=== PATIENT | female | born 1940 | race Caucasian/White ===

== ENCOUNTER 2017-03-26 11:23 | Emergency (ER) | payer MEDICARE, OTHER ==
[2017-03-26] MEDS ORDERED: NS 0.9% 1000 ML* 1,000 ML IV ONE (12:17)
[2017-03-26 12:41] LABS: Hematocrit 41 % (35-47); Hemoglobin 13.9 g/dl (12.0-16.0); Mean Corpuscular HGB Conc 34 g/dl (31-36); Mean Corpuscular Hemoglobin 34 pg (27-31); Mean Corpuscular Volume 98 fL (80-97); Mean Platelet Volume 10 um3 (7.4-10.4); Red Blood Count 4.13 10^6/ul (4.0-5.4); Red Cell Distribution Width 13 % (10.5-15); White Blood Count 8.6 10^3/ul (3.5-10.8)
[2017-03-26 13:00] LABS: Albumin 4.3 g/dL (3.2-5.2); BUN/Creatinine Ratio 15.2 (8-20); Calcium 10.2 mg/dL (8.6-10.3); EGFR Non-African American 70.8 (>60); Globulin 3.2 g/dL (2-4); Potassium 4.1 mmol/L (3.5-5.0); Total Bilirubin 0.7 mg/dL (0.2-1.0); Total Protein 7.5 g/dL (6.4-8.9)
[2017-03-26 13:48] VITALS: BP 136/66
--- NOTE | 2017-03-27 16:36 | ED ---
Yanni Melo Thomas, scribed for Brian Cadet MD on 03/26/17 at 1218 . GI/ HPI - HPI Summary HPI Summary: The pt is a 77 y/o F presenting to the ED c/o diarrhea that began yesterday morning. The diarrhea is described as loose and watery. She had some diarrhea today but she mostly had it yesterday. The diarrhea is aggravated and alleviated by nothing. 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 Pt additionally c/o lightheadedness (since yesterday), excessive gas, and some nausea. Pt denies any pain, vomiting, dysuria, and hematuria. PMHx: HTN, arthritis. PSHx: tubal ligation. SHx: former smoker, no alcohol use, no illicit drug use. She was referred to [facility] from her PCP. - History of Current Complaint Chief Complaint: EDNauseaVomitDiarrh Time Seen by Provider: 03/26/17 12:04 Stated Complaint: DEHYDRATION/SENT FROM [place] Obtained From: Patient, Family/[employer] Director - in room Onset/Duration: Started Days Ago - yesterday, Still Present Pain Intensity: 0 Associated Signs and Symptoms: Positive: Nausea, Diarrhea - onset yesterday, Other: - POS: lightheadedness, excessive gas; NEG: any pain. Negative: Vomiting , Blood w/Stool, Hematuria, Dysuria, Abdominal Pain Aggravating Factor(s): Nothing Alleviating Factor(s): Nothing - Allergy/Home Medications Allergies/Adverse Reactions: Allergies Allergy/AdvReac Type Severity Reaction Status Date / Time Atenolol [From Tenormin] Allergy Leg Cramps Verified 03/26/17 11:58 Rofecoxib [From Vioxx] Allergy Swelling Verified 03/26/17 11:58 Sulfa Antibiotics Allergy UNSURE WHY Verified 03/26/17 11:58 Hydrocodone AdvReac GI Upset Verified 03/26/17 11:58 Lactose AdvReac GI UPSET, Verified 03/26/17 11:58 GASSY MAXIDE AdvReac Intermediate See Comment Uncoded 03/26/17 11:58 PMH/Surg Hx/FS Hx/Imm Hx Previously Healthy: No Cardiovascular History: Reports: Hx Hypertension - ON MEDS GI History: Reports: Hx Gastroesophageal Reflux Disease Denies: Other GI Disorders Musculoskeletal History: Reports: Hx Arthritis - HANDS, BACK Denies: Other Musculoskeletal History Sensory History: Reports: Hx Cataracts - DOREEN, Hx Contacts or Glasses - GLASSES Denies: Hx Hearing Aid Opthamlomology History: Reports: Hx Cataracts - DOREEN, Hx Contacts or Glasses - GLASSES - Surgical History Surgery Procedure, Year, and Place: LAMINECTOMY, 2007, [facility]. TUBAL LIGATION 1976 Hx Anesthesia Reactions: Yes - DIFFICULTY TO INTUBATE Infectious Disease History: No Infectious Disease History: Denies: Traveled Outside the [place] in Last 30 Days - Family History Known Family History: Positive: Hypertension - Social History Alcohol Use: None Substance Use Type: Reports: None Smoking Status (MU): Former Smoker Amount Used/How Often: PACK A WEEK Have You Smoked in the Last Year: No Review of Systems Negative: Fever Positive: Diarrhea - onset yesterday, loose and watery, Nausea, Other - POS: excessive gas. Negative: Abdominal Pain, Vomiting Negative: dysuria, hematuria Neurological: Other - POS: lightheadedness All Other Systems Reviewed And Are Negative: Yes Physical Exam Triage Information Reviewed: Yes Vital Signs On Initial Exam: Initial Vitals Temp Pulse Resp BP Pulse Ox 97.8 F 70 18 140/65 100 03/26/17 11:36 03/26/17 11:36 03/26/17 11:36 03/26/17 11:36 03/26/17 11:36 Vital Signs Reviewed: Yes Appearance: Positive: No Pain Distress, Well-Nourished, Ill-Appearing Skin: Positive: Warm, Skin Color Reflects Adequate Perfusion, Dry, Other - Her skin is tense Head/Face: Positive: Normal Head/Face Inspection Eyes: Positive: Normal ENT: Positive: Normal ENT inspection, Other - Dry mucous membranes Neck: Positive: Supple, Nontender Respiratory/Lung Sounds: Positive: Clear to Auscultation, Breath Sounds Present Cardiovascular: Positive: RRR Abdomen Description: Positive: Nontender, Soft Bowel Sounds: Positive: Present Musculoskeletal: Positive: Normal Neurological: Positive: Normal Psychiatric: Positive: Normal, Affect/Mood Appropriate - Honorio Coma Scale Coma Scale Total: 15 Diagnostics - Vital Signs Vital Signs Temp Pulse Resp BP Pulse Ox 03/26/17 11:56 97.8 F 64 16 149/66 99 03/26/17 11:36 97.8 F 70 18 140/65 100 - Laboratory Lab Results: Lab Results 03/26/17 03/26/17 Range/Units 12:30 12:30 WBC 8.6 (3.5-10.8) 10^3/ul RBC 4.13 (4.0-5.4) 10^6/ul Hgb 13.9 (12.0-16.0) g/dl Hct 41 (35-47) % MCV 98 H (80-97) fL MCH 34 H (27-31) pg MCHC 34 (31-36) g/dl RDW 13 (10.5-15) % Plt Count 187 (150-450) 10^3/ul MPV 10 (7.4-10.4) um3 Neut % (Auto) 79.8 (38-83) % Lymph % (Auto) 14.0 L (25-47) % [place] % (Auto) 5.4 (1-9) % Eos % (Auto) 0.1 (0-6) % Baso % (Auto) 0.7 (0-2) % Absolute Neuts (auto) 6.9 (1.5-7.7) 10^3/ul Absolute Lymphs (auto) 1.2 (1.0-4.8) 10^3/ul Absolute Monos (auto) 0.5 (0-0.8) 10^3/ul Absolute Eos (auto) 0 (0-0.6) 10^3/ul Absolute Basos (auto) 0.1 (0-0.2) 10^3/ul Absolute Nucleated RBC 0 10^3/ul Nucleated RBC % 0 Sodium 132 L (133-145) mmol/L Potassium 4.1 (3.5-5.0) mmol/L Chloride 100 L (101-111) mmol/L Carbon Dioxide 25 (22-32) mmol/L Anion Gap 7 (2-11) mmol/L BUN 12 (6-24) mg/dL Creatinine 0.79 (0.51-0.95) mg/dL Est GFR ( Amer) 91.0 (>60) Est GFR (Non-Af Amer) 70.8 (>60) BUN/Creatinine Ratio 15.2 (8-20) Glucose 101 H (70-100) mg/dL Calcium 10.2 (8.6-10.3) mg/dL Magnesium 2.0 (1.9-2.7) mg/dL Total Bilirubin 0.70 (0.2-1.0) mg/dL AST 15 (13-39) U/L ALT 12 (7-52) U/L Alkaline Phosphatase 71 (34-104) U/L Total Protein 7.5 (6.4-8.9) g/dL Albumin 4.3 (3.2-5.2) g/dL Globulin 3.2 (2-4) g/dL Albumin/Globulin Ratio 1.3 (1-3) Result Diagrams: 03/26/17 12:30 03/26/17 12:30 Lab Statement: Any lab studies that have been ordered have been reviewed, and results considered in the medical decision making process. Re-Evaluation - Re-Evaluation First Eval Re-Evaluation Time: 13:39 Change: Unchanged Comment: She is unsure if she feels better. GIGU Course/Dx - Course Course Of Treatment: Ms. Sharma presented feeling weak and 'not well' for a day or so. Her W/U was negative and she was rehydrated and was a little better. This is likely viral and she was D/C'd for PMD F/U. - Diagnoses Provider Diagnoses: Diarrhea, Dehydration Discharge - Discharge Plan Condition: Stable Disposition: HOME Patient Education Materials: Dehydration (ED), Acute Diarrhea (ED) Referrals: Yoli Echevarria MD [Primary Care Provider] - 3 Days Additional Instructions: Follow up with Dr. Echevarria. The documentation as recorded by the Yanni salazar Thomas accurately reflects the service I personally performed and the decisions made by me, Brian Cadet MD.
== END 2017-03-26 13:58 | disposition home or self-care (01) ==
LOC: ED 11:23
DX: R19.7 Diarrhea, unspecified (principal); E86.0 Dehydration; R42 Dizziness and giddiness; R11.0 Nausea; I10 Essential (primary) hypertension; K21.9 Gastro-esophageal reflux disease without esophagitis; Z88.5 Allergy status to narcotic agent; Z88.2 Allergy status to sulfonamides; Z88.8 Allergy status to other drugs, medicaments and biological substances; Z87.891 Personal history of nicotine dependence
CPT/HCPCS: 36415; 80053; 83735; 85025; 99282

== ENCOUNTER 2017-07-08 07:13 | Emergency (ER) | payer MEDICARE, OTHER ==
[2017-07-08] MEDS ORDERED: Meclizine TAB* 12.5 MG PO ONE (07:57)
[2017-07-08] MEDS ORDERED: NS 0.9% 1000 ML* 1,000 ML IV ONE (07:57)
[2017-07-08] MEDS ORDERED: Famotidine IV* 10 MG/ML 2 ML (20 mg) IV SLOW PU ONE (07:58)
--- NOTE | 2017-07-08 08:20 | RAD ---
INDICATION: Dizziness COMPARISON: None TECHNIQUE: AP seated and lateral views were obtained. FINDINGS: Bones/Soft Tissues: There are no acute bony findings. Cardiomediastinal: The cardiomediastinal silhouette is normal. Lungs: There are no infiltrates. Pleura: There are no pleural effusions. Other: None IMPRESSION: NO ACTIVE DISEASE.
[2017-07-08 08:44] LABS: Hematocrit 39 % (35-47); Hemoglobin 13.6 g/dl (12.0-16.0); Mean Corpuscular HGB Conc 35 g/dl (31-36); Mean Corpuscular Hemoglobin 34 pg (27-31); Mean Corpuscular Volume 99 fL (80-97); Mean Platelet Volume 10 um3 (7.4-10.4); Red Blood Count 3.99 10^6/ul (4.0-5.4); Red Cell Distribution Width 13 % (10.5-15); White Blood Count 6.6 10^3/ul (3.5-10.8)
[2017-07-08 08:55] LABS: ALT 12 U/L (7-52); AST 15 U/L (13-39); Albumin 4.1 g/dL (3.2-5.2); Alkaline Phosphatase 67 U/L (34-104); Anion Gap 8 mmol/L (2-11); BUN/Creatinine Ratio 14.1 (8-20); Blood Urea Nitrogen 12 mg/dL (6-24); C Reactive Protein < 1.00 mg/L (< 5.00); CO2 Carbon Dioxide 24 mmol/L (22-32); Chloride 103 mmol/L (101-111); EGFR African American 83.6 (>60); Globulin 2.6 g/dL (2-4); Glucose 100 mg/dL (70-100); Potassium 4.1 mmol/L (3.5-5.0); Sodium 135 mmol/L (133-145); Total Protein 6.7 g/dL (6.4-8.9)
[2017-07-08 08:57] LABS: Troponin I 0.01 ng/mL (<0.04)
[2017-07-08 09:15] LABS: TSH (Thyroid Stimulating Horm) 0.07 mcIU/mL (0.34-5.60)
[2017-07-08 10:54] VITALS: BP 124/57
[2017-07-08 10:56] LABS: Free T4 1.07 ng/dL (0.61-1.12)
[2017-07-08 11:05] LABS: Urine Bilirubin Negative (Negative); Urine Glucose Negative (Negative); Urine Nitrite Negative (Negative)
--- NOTE | 2017-07-09 07:30 | ED ---
Renato Melo Angela, scribed for Felton Cohen MD on 07/08/17 at 0749 . Complex/Multi-Sys Presentation - HPI Summary HPI Summary: This pt is a 77 y/o female presenting to [facility] c/o dizziness and weakness today. Pt reports she has had these episodes intermittently for a year. She states that her first episode began 1 year ago with shakiness and weakness. The next one was in October/November 2016 and notes she was dizzy. Today she felt dizzy earlier and had to be held, per family member. Pt describes today's dizziness as feeling her head and body "funny" and feeling weak, almost like passing out. Currently pt feels tired and weak, but her dizziness has resolved. She describes her body feels weak and with no energy. She denies chest pain, SOB, palpitations, headache, blurry vision, dysuria, abd pain. Pt additionally states she had a lot of gas today. She reports her last bowel movement was this morning, which she describes as having small BM several times a day. - History Of Current Complaint Chief Complaint: EDDizziness Time Seen by Provider: 07/08/17 07:39 Hx Obtained From: Patient Onset/Duration: Lasting Hours, Still Present Timing: Hours Location: Negative Associated Signs And Symptoms: Positive: Dizziness - now resolved, Weakness - generalized, Other - POS: tired, fatigue, shakiness, no energy. NEG: palpitations, blurry vision. Negative: Headache, SOB, Chest Pain, Abdominal Pain, Dysuria, Fever - Allergies/Home Medications Allergies/Adverse Reactions: Allergies Allergy/AdvReac Type Severity Reaction Status Date / Time Sulfa Antibiotics Allergy UNSURE WHY Verified 03/26/17 11:58 Amlodipine AdvReac See Comment Verified 07/08/17 09:32 Atenolol [From Tenormin] AdvReac Leg Cramps Verified 07/08/17 09:31 Diltiazem AdvReac See Comment Verified 07/08/17 09:30 Hydrocodone AdvReac GI Upset Verified 03/26/17 11:58 Lactose AdvReac GI UPSET, Verified 03/26/17 11:58 GASSY Rofecoxib [From Vioxx] AdvReac Swelling Verified 07/08/17 09:32 MAXIDE AdvReac Intermediate See Comment Uncoded 03/26/17 11:58 Home Medications: Home Medications Acetaminophen [Acetaminophen Extra Stren] 500 mg PO TID WITH MEALS PRN 07/08/17 [History Confirmed 07/08/17] Aspirin EC Low Dose* [Ecotrin EC Low Dose 81 MG*] 81 mg PO DAILY 07/08/17 [ History Confirmed 07/08/17] Calcium Carbonate-Cholecalcife [Calcium 1000 + D] 1 tab PO BID 07/08/17 [ History Confirmed 07/08/17] Cyanocobalamin TAB* [Vitamin B12 TAB*] 1,000 mcg PO DAILY 07/08/17 [History Confirmed 07/08/17] Esomeprazole(NF) [NexIUM(NF)] 40 mg PO DAILY 07/08/17 [History Confirmed ] Glucosamine Sulfate 1,000 mg PO BID WITH MEALS 07/08/17 [History Confirmed 07/08] Lisinopril TAB* [Prinivil TAB*] 20 mg PO DAILY 07/08/17 [History Confirmed 07/08] Naproxen Sodium [Naproxen Sodium 220 mg] 220 mg PO TID WITH MEALS PRN 07/08/17 [ History Confirmed 07/08/17] Spironolactone TAB* [Aldactone TAB*] 25 mg PO DAILY 07/08/17 [History Confirmed 07/08/17] clonazePAM TAB(*) [KlonoPIN TAB(*)] 0.5 mg PO BID 07/08/17 [History Confirmed ] PMH/Surg Hx/FS Hx/Imm Hx Cardiovascular History: Reports: Hx Hypertension - ON MEDS GI History: Reports: Hx Gastroesophageal Reflux Disease Denies: Other GI Disorders Musculoskeletal History: Reports: Hx Arthritis - HANDS, BACK Denies: Other Musculoskeletal History Sensory History: Reports: Hx Cataracts - DOREEN, Hx Contacts or Glasses - GLASSES Denies: Hx Hearing Aid Opthamlomology History: Reports: Hx Cataracts - DOREEN, Hx Contacts or Glasses - GLASSES - Surgical History Surgery Procedure, Year, and Place: LAMINECTOMY, 2006, [facility]. TUBAL LIGATION 1976 Hx Anesthesia Reactions: Yes - DIFFICULTY TO INTUBATE Infectious Disease History: No Infectious Disease History: Denies: Traveled Outside the [place] in Last 30 Days - Family History Known Family History: Positive: Hypertension - Social History Alcohol Use: None Substance Use Type: Reports: None Smoking Status (MU): Former Smoker Amount Used/How Often: PACK A WEEK Have You Smoked in the Last Year: No Review of Systems Positive: Fatigue - no energy. Negative: Fever, Chills Negative: Blurred Vision Negative: Palpitations, Chest Pain Negative: Shortness Of Breath Negative: Abdominal Pain Negative: dysuria Neurological: Other - dizziness, shakiness Positive: Weakness - generalized. Negative: Headache All Other Systems Reviewed And Are Negative: Yes Physical Exam - Summary Physical Exam Summary: VITAL SIGNS: Reviewed. GENERAL: Patient is a well-developed and nourished female who is lying comfortable in the stretcher. Patient is not in any acute respiratory distress. Pt has generalized weakness. HEAD AND FACE: No signs of trauma. No ecchymosis, hematomas or skull depressions. No sinus tenderness. EYES: PERRLA, EOMI x 2, No injected conjunctiva, no nystagmus. EARS: Hearing grossly intact. Ear canals and tympanic membranes are within normal limits. MOUTH: Oropharynx within normal limits. NECK: Supple, trachea is midline, no adenopathy, no JVD, no carotid bruit, no c- spine tenderness, neck with full ROM. CHEST: Symmetric, no tenderness at palpation LUNGS: Clear to auscultation bilaterally. No wheezing or crackles. CVS: Regular rate and rhythm, S1 and S2 present, no murmurs or gallops appreciated. ABDOMEN: Soft, non-tender. No signs of distention. No rebound no guarding, and no masses palpated. Bowel sounds are normal. EXTREMITIES: FROM in all major joints, no edema, no cyanosis or clubbing. NEURO: Alert and oriented x 3. No acute neurological deficits. Speech is normal and follows commands. SKIN: Dry and warm Triage Information Reviewed: Yes Vital Signs On Initial Exam: Initial Vitals Temp Pulse Resp BP Pulse Ox 97.4 F 103 20 150/71 100 07/08/17 07:19 07/08/17 07:19 07/08/17 07:19 07/08/17 07:19 07/08/17 07:19 Vital Signs Reviewed: Yes - Honorio Coma Scale Coma Scale Total: 15 Diagnostics - Vital Signs Vital Signs Temp Pulse Resp BP Pulse Ox 07/08/17 07:34 74 25 100 07/08/17 07:32 135/65 07/08/17 07:19 97.4 F 103 20 150/71 100 - Laboratory Lab Results: Lab Results 07/08/17 07/08/17 07/08/17 Range/Units 07:52 07:52 07:52 WBC 6.6 (3.5-10.8) 10^3/ul RBC 3.99 L (4.0-5.4) 10^6/ul Hgb 13.6 (12.0-16.0) g/dl Hct 39 (35-47) % MCV 99 H (80-97) fL MCH 34 H (27-31) pg MCHC 35 (31-36) g/dl RDW 13 (10.5-15) % Plt Count 205 (150-450) 10^3/ul MPV 10 (7.4-10.4) um3 Neut % (Auto) 68.3 (38-83) % Lymph % (Auto) 21.9 L (25-47) % [place] % (Auto) 7.9 (1-9) % Eos % (Auto) 0.7 (0-6) % Baso % (Auto) 1.2 (0-2) % Absolute Neuts (auto) 4.5 (1.5-7.7) 10^3/ul Absolute Lymphs (auto) 1.4 (1.0-4.8) 10^3/ul Absolute Monos (auto) 0.5 (0-0.8) 10^3/ul Absolute Eos (auto) 0 (0-0.6) 10^3/ul Absolute Basos (auto) 0.1 (0-0.2) 10^3/ul Absolute Nucleated RBC 0 10^3/ul Nucleated RBC % 0.1 Sodium 135 (133-145) mmol/L Potassium 4.1 (3.5-5.0) mmol/L Chloride 103 (101-111) mmol/L Carbon Dioxide 24 (22-32) mmol/L Anion Gap 8 (2-11) mmol/L BUN 12 (6-24) mg/dL Creatinine 0.85 (0.51-0.95) mg/dL Est GFR ( Amer) 83.6 (>60) Est GFR (Non-Af Amer) 65.0 (>60) BUN/Creatinine Ratio 14.1 (8-20) Glucose 100 (70-100) mg/dL Lactic Acid (0.5-2.0) mmol/L Calcium 10.0 (8.6-10.3) mg/dL Magnesium 2.0 (1.9-2.7) mg/dL Total Bilirubin 0.60 (0.2-1.0) mg/dL AST 15 (13-39) U/L ALT 12 (7-52) U/L Alkaline Phosphatase 67 (34-104) U/L Troponin I 0.01 (<0.04) ng/mL C-Reactive Protein < 1.00 (< 5.00) mg/L B-Natriuretic Peptide 18 ( - 100) pg/mL Total Protein 6.7 (6.4-8.9) g/dL Albumin 4.1 (3.2-5.2) g/dL Globulin 2.6 (2-4) g/dL Albumin/Globulin Ratio 1.6 (1-3) TSH 0.07 L (0.34-5.60) mcIU/mL Free T4 1.07 (0.61-1.12) ng/dL Urine Color Urine Appearance Urine pH (5-9) Ur Specific [place] (1.010-1.030) Urine Protein (Negative) Urine Ketones (Negative) Urine Blood (Negative) Urine Nitrate (Negative) Urine Bilirubin (Negative) Urine Urobilinogen (Negative) Ur Leukocyte Esterase (Negative) Urine Glucose (Negative) 07/08/17 07/08/17 Range/Units 07:52 09:57 WBC (3.5-10.8) 10^3/ul RBC (4.0-5.4) 10^6/ul Hgb (12.0-16.0) g/dl Hct (35-47) % MCV (80-97) fL MCH (27-31) pg MCHC (31-36) g/dl RDW (10.5-15) % Plt Count (150-450) 10^3/ul MPV (7.4-10.4) um3 Neut % (Auto) (38-83) % Lymph % (Auto) (25-47) % [place] % (Auto) (1-9) % Eos % (Auto) (0-6) % Baso % (Auto) (0-2) % Absolute Neuts (auto) (1.5-7.7) 10^3/ul Absolute Lymphs (auto) (1.0-4.8) 10^3/ul Absolute Monos (auto) (0-0.8) 10^3/ul Absolute Eos (auto) (0-0.6) 10^3/ul Absolute Basos (auto) (0-0.2) 10^3/ul Absolute Nucleated RBC 10^3/ul Nucleated RBC % Sodium (133-145) mmol/L Potassium (3.5-5.0) mmol/L Chloride (101-111) mmol/L Carbon Dioxide (22-32) mmol/L Anion Gap (2-11) mmol/L BUN (6-24) mg/dL Creatinine (0.51-0.95) mg/dL Est GFR ( Amer) (>60) Est GFR (Non-Af Amer) (>60) BUN/Creatinine Ratio (8-20) Glucose (70-100) mg/dL Lactic Acid 1.0 (0.5-2.0) mmol/L Calcium (8.6-10.3) mg/dL Magnesium (1.9-2.7) mg/dL Total Bilirubin (0.2-1.0) mg/dL AST (13-39) U/L ALT (7-52) U/L Alkaline Phosphatase (34-104) U/L Troponin I (<0.04) ng/mL C-Reactive Protein (< 5.00) mg/L B-Natriuretic Peptide ( - 100) pg/mL Total Protein (6.4-8.9) g/dL Albumin (3.2-5.2) g/dL Globulin (2-4) g/dL Albumin/Globulin Ratio (1-3) TSH (0.34-5.60) mcIU/mL Free T4 (0.61-1.12) ng/dL Urine Color Straw Urine Appearance Clear Urine pH 7.0 (5-9) Ur Specific [place] 1.005 L (1.010-1.030) Urine Protein Negative (Negative) Urine Ketones Negative (Negative) Urine Blood Negative (Negative) Urine Nitrate Negative (Negative) Urine Bilirubin Negative (Negative) Urine Urobilinogen Negative (Negative) Ur Leukocyte Esterase Negative (Negative) Urine Glucose Negative (Negative) Result Diagrams: 07/08/17 07:52 12/01/17 07:52 Lab Statement: Any lab studies that have been ordered have been reviewed, and results considered in the medical decision making process. - Radiology Chest XR Xray Interpretation: No Acute Changes - IMPRESSION: No active disease. ED physician has reviewed this radiology report and agrees. Radiology Interpretation Completed By: Radiologist - EKG 0814 Cardiac Rate: NL EKG Rhythm: Sinus Rhythm - 70 bpm EKG Interpretation: No ST elevation. Normal axis Re-Evaluation - Re-Evaluation First Eval Re-Evaluation Time: 10:42 Comment: I reviewed the lab results with the pt and family. Complex Multi-Symp Course/Dx Assessment/Plan: This pt is a 77 y/o female presenting to [facility] c/o dizziness and weakness today. Pt reports she has had these episodes intermittently for a year. She states that her first episode began 1 year ago with shakiness and weakness. The next one was in October/November 2016 and notes she was dizzy. Today she felt dizzy earlier and had to be held, per family member. Pt describes today 's dizziness as feeling her head and body "funny" and feeling weak, almost like passing out. Currently pt feels tired and weak, but her dizziness has resolved. She describes her body feels weak and with no energy. She denies chest pain, SOB , palpitations, headache, blurry vision, dysuria, abd pain. Pt additionally states she had a lot of gas today. She reports her last bowel movement was this morning, which she describes as having small BM several times a day. Test results without any significant abnormalities except for TSH of 0.07. Urinalysis is negative for UTI. Chest XR shows no active disease. In the ED course, the pt was given IV fluids, Pepcid, and meclizine. After these medications, the pt is feeling a little better. I believe the pts weakness is secondary to thyroid disease for which she has a follow up with an shingle weaver on Tuesday for further work up. Pt will be discharge with follow up from her PCP. Pt is hemodynamically stable, alert and oriented x3. - Diagnoses Provider Diagnoses: Weakness, Abnormal TSH Discharge - Discharge Plan Condition: Stable Disposition: HOME Patient Education Materials: Weakness (ED) Referrals: Yoli Echevarria MD [Primary Care Provider] - Additional Instructions: Please follow up with your primary care provider. RETURN TO THE ED FOR ANY WORSENING OR NEW SYMPTOMS. The documentation as recorded by the Renato salazar Angela accurately reflects the service I personally performed and the decisions made by , Felton Cohen MD.
== END 2017-07-08 11:02 | disposition home or self-care (01) ==
LOC: ED 07:13
DX: R53.1 Weakness (principal); R94.6 Abnormal results of thyroid function studies; R42 Dizziness and giddiness; Z86.79 Personal history of other diseases of the circulatory system; Z87.891 Personal history of nicotine dependence
CPT/HCPCS: 36415; 71020; 80053; 81003; 83605; 83735; 83880; 84439; 84443; 84484; 85025; 86140; 93005; 99283; A9270-GY

== ENCOUNTER → 2019-01-30 06:30 | Day surgery (SDC) | payer MEDICARE, OTHER ==
--- NOTE | 2019-01-26 08:31 | HP ---
PREOPERATIVE HISTORY AND PHYSICAL: DATE OF SURGERY/ADMISSION: 01/30/19 DATE OF OFFICE VISIT/ENCOUNTER: 01/08/19 ATTENDING SURGEON: Candice Waggoner MD.* (DICTATED BY CARRIE GRAHAM) PROCEDURE: Left wrist carpal tunnel release, ulnar nerve decompression of left elbow. HISTORY OF PRESENT ILLNESS: This is a 78-year-old female who complains of numbness and tingling in her bilateral hands for many years, worse on the left than on the right. She is left handed. She recently had a nerve conduction study that showed bilateral moderate carpal tunnel syndrome and there are some mild findings of ulnar nerve compression on the left side as well. On the left side, she complains of numbness in all of her fingers. On the right side, all of the fingers except the small finger. There was no injury to either arm. She has tried bracing in the past, but they are no longer helpful. She is interested in pursuing surgical intervention for her left upper extremity in the form of a left wrist carpal tunnel release and ulnar nerve decompression at the elbow. PAST MEDICAL HISTORY: 1. Peripheral neuropathy. 2. Hypertension. 3. Hypothyroidism. 4. History of heart murmur. 5. History of vitamin D deficiency. PAST SURGICAL HISTORY: 1. Squamous cell carcinoma excision, left arm. 2. Bilateral cataract removal in 2016. 3. Laminectomy in 2006. 4. Tubal ligation. 5. Tonsillectomy. CURRENT MEDICATIONS: 1. Acetaminophen 500 mg 1 to 2 tabs 3 times a day p.r.n. 2. Aspirin 81 mg daily. 3. Brimonidine tartrate 0.2% 1 drop each eye 2 times daily. 4. Calcium citrate plus D 250/200 mg per unit 1500 units 1 tab per day. 5. Gabapentin 600 mg daily. 6. Gas-X Extra Strength daily. 7. Glucosamine sulfate 1000 mg twice a day. 8. Latanoprost 0.005% 1 drop each eye at bedtime. 9. Lisinopril 20 mg daily. 10. Prevacid 30 mg daily. 11. Spironolactone 25 mg daily. 12. Tapazole 5 mg twice a day. 13. Vitamin B12 1000 mcg daily. ALLERGIES: AMLODIPINE, CARDIZEM, DEXAMETHASONE, ESCITALOPRAM, HYDROCHLOROTHIAZIDE, NABUMETONE, RELAFEN, ROFECOXIB, SULFA ANTIBIOTIC, TENORMIN , VIOXX, none of these medications cause an anaphylactic reaction. FAMILY MEDICAL HISTORY: Heart disease, diabetes, and hypertension. SOCIAL HISTORY: The patient is retired. She is a former smoker. She quit 50 years ago. Prior to that she smoked socially for less than 10 years. She denies recreational drug use and does not drink alcohol. REVIEW OF SYSTEMS: Negative for general, cephalic, cardiovascular, respiratory , GI, , other musculoskeletal, integumentary, endocrine, neurologic and hematologic symptoms. Infectious disease: Negative for MRSA, hepatitis C, and HIV. PHYSICAL EXAMINATION GENERAL: Well developed, well nourished, 78-year-old female in no acute distress. VITAL SIGNS: Height 5 feet 9 inches, weight 180 pounds, blood pressure 136/68 and pulse rate 62. HEENT: Normocephalic, atraumatic. Pupils are equal round and reactive to light and accommodation. Extraocular movements are intact. Throat is clear. NECK: Supple. No palpable lymph nodes. PULMONARY: Lungs are clear to auscultation bilaterally. No wheezes, rales or rhonchi. CARDIOVASCULAR: Regular rate and rhythm. S1, S2. Mild murmur noted on auscultation. No rubs or gallops. ABDOMEN: Positive bowel sounds, soft and nontender. MUSCULOSKELETAL: On exam of bilateral upper extremity, there is thenar wasting , worse on the right than on the left. She has decreased sensation in the fingers of the median nerve on the right hand and all of the fingers of the left hand. Positive Tinel's sign of the ulnar nerve at the elbow on the left, not on the right. Negative Tinel's sign of both median nerves at the wrist. There is weakness with thumb abduction bilaterally. NEUROLOGIC: Alert and oriented x3. Cranial nerves II through XII are intact. Sensation is intact to light touch. IMPRESSION: Bilateral carpal tunnel syndrome and left ulnar neuropathy of the elbow. PLAN: The patient is scheduled to undergo a left wrist carpal tunnel release and an ulnar nerve decompression at the left elbow with Dr. Waggoner on 01/30/19. She will follow up in the office 10 days postop for recheck and suture removal. The patient is planning on using [id number] Tylenol for postoperative pain management. CARRIE GRAHAM [id number]/[facility] #: [id number] MERI
[~2019-01-30 06:30] MED LIST: Acetaminophen TAB* 325 MG PO PRN; Buffered Lidocaine 1% SYRIN* 1 ML/SYRINGE INTRADERM ONE; Ibuprofen TAB* 600 MG PO PRN; Lactated Ringers 1000 ML Bag* 1,000 ML IV SCH; Lidocaine 1% INJ* 10 MG/ML 30 ML SDV ONE; Midazolam* 1 MG/ML 2 ML VIAL (2 MG) ONE; Naloxone* 0.4 MG/ML 1 ML VIAL IV PRN; Ondansetron INJ* 2 MG/ML VIAL IV PRN; Propofol* 10 MG/ML 20 ML BTL ONE; ceFAZolin 2 GM PREMIX in ORs 2 GM/50 ML BAG ONE; fentaNYL* 50 MCG/ML 2 ML VIAL (100 MCG VIAL) IV PRN; fentaNYL* 50 MCG/ML 2 ML VIAL (100 MCG VIAL) ONE; oxyCODONE/Acetamin 5/325 MG* TAB PO PRN
[2019-01-30 08:32] VITALS: BP 113/80
--- NOTE | 2019-01-30 13:48 | OP ---
DATE OF OPERATION: 01/30/19 MERGED WITH [facility] DATE OF : 42 SURGEON: Candice Waggoner MD [employer] CONSULTANT: CARRIE Santos ANESTHESIA: Local MAC. PRE-OP DIAGNOSIS: Right carpal tunnel syndrome. POST-OP DIAGNOSIS: Right carpal tunnel syndrome. OPERATIVE PROCEDURE: Right carpal tunnel release. ESTIMATED BLOOD LOSS: Zero. TOURNIQUET TIME: Approximately 10 minutes. INDICATIONS FOR PROCEDURE: Judith is a 78-year-old female who has numbness and tingling in the median nerve distribution of her right hand. She presents for right carpal tunnel release. DESCRIPTION OF PROCEDURE: The patient was brought to the operating room, was given a sedation anesthetic and a local infiltration of 10 cc of 1% plain lidocaine in the palm of her right hand. The skin of her right hand and forearm was prepped and draped in the usual sterile fashion. The hand and forearm were exsanguinated and the tourniquet elevated to 250 mmHg. A longitudinal incision was made in the palm in line with the ring finger. We dissected through the subcutaneous tissue down to the transverse carpal ligament. The ligament was divided sharply with a knife and then more proximally with the scissors. The nerve was dissected free from the surrounding tissue and there was an area of moderate compression at the mid portion of the ligament. The wound was irrigated and the skin edges reapproximated with 4-0 nylon suture. The wound was dressed with Xeroform, 4x4 , Webril, and an Bhavesh wrap. The patient tolerated the procedure well and was brought to the recovery room in good condition. [id number]/[facility] #: [id number] [facility]
== END | disposition home or self-care (01) ==
LOC: OREAST 06:30
PROVIDERS: ATTEND Orthopaedic Surgery
DX: G56.01 Carpal tunnel syndrome, right upper limb (principal); I10 Essential (primary) hypertension; E03.9 Hypothyroidism, unspecified; G62.9 Polyneuropathy, unspecified; Z85.828 Personal history of other malignant neoplasm of skin; R01.1 Cardiac murmur, unspecified; K21.9 Gastro-esophageal reflux disease without esophagitis; M19.90 Unspecified osteoarthritis, unspecified site
CPT/HCPCS: J0690; J2250; J2704; J3010

== ENCOUNTER 2019-02-24 10:31 | Emergency (ER) | payer MEDICARE, OTHER ==
--- OUTSIDE RECORDS SUMMARY | 2019-02-24 10:38 | XMS REPORT | Continuity of Care Document ---
:1940 External Reference #:[id number] Author Name Saumya España Care Team Providers Name Role Phone Yoli Echevarria MD Primary Care Physician Unavailable Payers Date Identification Numbers Payment Provider Subscriber Policy Number: [id number] Medicare Judith Sharma PayID: [id number] [address] [place] [address] Policy Number: [id number] [employer] Insurance Judith Sharma PayID: [id number] [address] [place] [address] Problems Active Problems Provider Date Bilateral carpal tunnel syndrome Ben Patel M.D. Onset: 12/21/2018 Polyneuropathy Ben Patel M.D. Onset: 10/06/2017 Abnormal gait Ben Patel M.D. Onset: 09/06/2017 Skin sensation disturbance Ben Patel M.D. Onset: 09/06/2017 Family History Date Family Member(s) Observation Comments General Heart Disease General Hypertension General Diabetes Father due to Heart Disease () Mother due to Heart Disease () Social History Type Date Description Comments Sex Unknown Marital Status Lives With Spouse Occupation Retired Hand Dominance Left-handed ETOH Use Denies alcohol use Tobacco Use Start: Unknown End: Patient is a former smoker Unknown Smoking Status Reviewed: 01/29/19 Patient is a former smoker Exercise Type/Frequency Exercises regularly Allergies, Adverse Reactions, Alerts Active Allergies Reaction Severity Comments Date Amlodipine 09/06/2017 Cardizem 09/06/2017 Dexamethasone 09/06/2017 Hydrochlorothiazide 09/06/2017 Nabumetone 09/06/2017 Rofecoxib 09/06/2017 Sulfa Antibiotics 09/06/2017 Tenormin 09/06/2017 Escitalopram 01/08/2019 Rofecoxib 01/08/2019 Nabumetone 01/08/2019 Medications Active Medications SIG Qnty Indications Ordering Provider Date Gabapentin take one tablet 90tabs G62.9 Ben Patel, 12/21/2018 600mg Tablets by mouth three M.D. times a day Aspir-81 1 by mouth Ben Patel, 09/06/[address] every day M.D. Latanoprost 1 drop in each Unknown 0.005% eye at bedtime Solution Brimonidine Tartrate 1 drop in each Unknown 0.2% eye 2x daily Solution Prevacid 1 tab po daily Unknown 30mg Capsules DR Gas-X Extra Strength once daily Unknown Capsules Spironolactone 1 by mouth Unknown 25mg every day Tablets Tapazole 1 by mouth Unknown 5mg Tablets twice a day Lisinopril 1 by mouth Unknown 20mg Tablets every day Glucosamine Sulfate 1 by mouth Unknown twice a day 1000mg Capsules Vitamin B-12 1 by mouth Unknown 1000mcg every day Lozenges Calcium Citrate + D 1000-1500Units Unknown one tab per day [id number] Tablets Acetaminophen 1-2 tabs 3x a Unknown 500mg day as needed Tablets History Medications Gabapentin 1 cap by mouth 360caps G62.9 Ben Patel, 07/14/2018 - 300mg four times a day M.D. 12/21/2018 Capsules Gabapentin 2 capsule three 180caps G62.9 Ben Patel, 06/23/2018 - 100mg times daily. M.D. 07/14/2018 Capsules Gabapentin 1 capsule three 90caps G62.9 Ben Patel, 04/13/2018 - 100mg times daily. M.D. 06/23/2018 Capsules Nexium 1 by mouth every Unknown - 40mg day 09/05/2017 Capsules Lorazepam As directed Unknown - 0.5mg 12/20/2018 Tablets Nexium 1 by mouth every Unknown - 40mg day 12/20/[address] Vital Signs Date Vital Result Comment 01/29/2019 1:56pm Height 69 inches 5'9" Weight 180.00 lb Heart Rate 94 /min BP Systolic 130 mmHg BP Diastolic 60 mmHg Body Temperature 94.0 F Pain Level 2 BMI (Body Mass Index) 26.6 kg/m2 01/08/2019 8:01am Height 69 inches 5'9" Weight 180.00 lb BP Systolic 136 mmHg BP Diastolic 68 mmHg Respiratory Rate 20 /min Body Temperature 97.4 F Pain Level 6 BMI (Body Mass Index) 26.6 kg/m2 12/21/2018 9:48am Height 69 inches 5'9" Weight 180.00 lb Heart Rate 62 /min BP Systolic 150 mmHg BP Diastolic 92 mmHg BMI (Body Mass Index) 26.6 kg/m2 07/14/2018 9:11am Height 69 inches 5'9" Weight 171.00 lb Heart Rate 70 /min BP Systolic 130 mmHg BP Diastolic 88 mmHg BMI (Body Mass Index) 25.2 kg/m2 04/13/2018 9:20am Height 69 inches 5'9" Weight 165.00 lb Heart Rate 72 /min BP Systolic 140 mmHg BP Diastolic 80 mmHg Respiratory Rate 16 /min BMI (Body Mass Index) 24.4 kg/m2 01/09/2018 8:50am Height 69 inches 5'9" Weight 165.00 lb Heart Rate 80 /min BP Systolic Sitting 142 mmHg BP Diastolic Sitting 62 mmHg Respiratory Rate 16 /min BMI (Body Mass Index) 24.4 kg/m2 10/06/2017 9:12am Height 69 inches 5'9" Weight 160.00 lb Heart Rate 74 /min BP Systolic 136 mmHg BP Diastolic 86 mmHg Respiratory Rate 14 /min BMI (Body Mass Index) 23.6 kg/m2 09/06/2017 9:35am Height 69 inches 5'9" Weight 160.00 lb Heart Rate 84 /min BP Systolic 140 mmHg BP Diastolic 78 mmHg Respiratory Rate 16 /min BMI (Body Mass Index) 23.6 kg/m2 Results Test Date Facility Test Result H/L Range Note Laboratory test 09/06/2017 [facility] Vitamin B12 566 pg/mL N 180-9[address] [place] [address] [phone] Folic Acid (Folate) 18.64 ng/mL >3.99 Erythrocyte Sed Rate 12 mm/Hr N 0-40 C Reactive Protein < 1.00 mg/L N < 5.00 2 Protein 09/06/2017 [facility] Total 7.6 g/dL 6.3 - Electrophoresis [address] Protein(Pep) 7.9 [place] [address] [phone] Albumin 3.7 g/dL 3.4-4.7 Alpha-1 Globulin 0.3 g/dL 0.1-0.3 Alpha-2 Globulin 1.2 g/dL Abnormal 0.6-1.0 Beta Globulin 1.1 g/dL 0.7-1.2 Gamma Globulin 1.3 g/dL 0.6-1.6 Albumin/Globulin Ratio 0.94 Impression See Comment 3 1 Normal Range 180 to 914 Indeterminate Range 145 to 180 Deficient Range <145 2 Acute inflammation: >10.00 3 RESULT: No apparent monoclonal protein on serum electrophoresis. Test Performed by: [address] [address] Procedures Date Code Description Status 12/26/2018 33353 Nerve Conduction 07-08 Studies Completed 12/26/2018 24474 Needle Electromyography Each Extremity W/Related Completed Paraspinal Areas 09/20/2017 96493 Nerve Conduction 05-06 Studies Completed 09/20/2017 92591 Needle Electromyography Complete, Five Or More Muscles Completed Studied Encounters Type Date Location Provider Dx Diagnosis Office Visit 01/08/2019 [facility] Candice Waggoner, G56.22 Lesion of ulnar 8:00a [facility] nerve, left upper limb G56.02 Carpal tunnel syndrome, left upper limb Office Visit 12/21/2018 [place] Ben G62.9 Polyneuropathy, 9:45a Farhat Patel M.D. unspecified [facility] R26.81 Unsteadiness on feet G56.03 Carpal tunnel syndrome, bilateral upper limbs Office Visit 07/14/2018 [place] Ben G62.9 Polyneuropathy, 9:15a Farhat Patel M.D. unspecified [facility] R26.81 Unsteadiness on feet Office Visit 04/13/2018 [place] Ben G62.9 Polyneuropathy, 9:15a Farhat Patel M.D. unspecified [facility] R26.81 Unsteadiness on feet R20.2 Paresthesia of skin Office Visit 01/09/2018 Max Contreras G62.9 Polyneuropathy, 9:00a Neurologic Ximena Patel unspecified [facility] R20.2 Paresthesia of skin R26.81 Unsteadiness on feet Office Visit 10/06/2017 [place] Ben G62.9 Polyneuropathy, 9:15a Neurologic Ximena Patel unspecified [facility] R20.2 Paresthesia of skin R26.81 Unsteadiness on feet Office Visit 09/06/2017 [place] Ben Patel, Matt0.2 Paresthesia of 9:30a Neurologic Ximena skin [facility] R20.0 Anesthesia of skin R26.81 Unsteadiness on feet Plan of Treatment Future Appointment(s):01/30/2019 7:30 am - EDOUARD Santos at [facility]01/30/2019 7:30 am - Candice Waggoner M.D. at [facility]02/12/2019 8:30 am - Candice Waggoner M.D. at [facility]04/23/2019 8:30 am - Ben Patel M.D. at [place] [facility]01/29/2019 - Candice Waggoner M.D.G56.22 Lesion of ulnar nerve, left upper limbFollow up:Follow up: has apptG56.02 Carpal tunnel syndrome, left upper limbFollow up:ixfrbgK56.03 Carpal tunnel syndrome, bilateral upper limbs
--- OUTSIDE RECORDS SUMMARY | 2019-02-24 10:38 | XMS REPORT | Continuity of Care Document ---
:1940 External Reference #:[id number] Author Name Claudy Medina M.D. Address [address] [place] [address] Care Team Providers Name Role Phone Yoli Echevarria M.D. Primary Care Physician Unavailable Payers Date Identification Numbers Payment Provider Subscriber Policy Number: [id number] Medicare - [facility] Judith Gibson Zachary PayID: [id number] [address] [place] [address] Policy Number: [id number] [employer] Ppo/Pos/Epo/Nap Judith Gibson Zachary Group Number: [id number] [address] PayID: [id number] [place] [address] Problems Active Problems Provider Date Gastroesophageal reflux disease Onset: Essential hypertension Onset: Arthritis Onset: Primary open angle glaucoma Claudy Medina M.D. Onset: 03/13/2015 Nuclear senile cataract Claudy Medina M.D. Onset: 03/13/2015 Mild / Early Stage Glaucoma Claudy Medina M.D. Onset: 03/13/2015 Primary open-angle glaucoma, mild stage Claudy Medina M.D. Onset: 2014 Combined form of senile cataract Claudy Medina M.D. Onset: 05/29/2015 Presence of intraocular lens Claudy Medina M.D. Onset: 05/29/2015 Myopia Dominique Luong O.D. Onset: 06/25/2015 Regular astigmatism Dominique Luong O.D. Onset: 06/25/2015 Presbyopia Dominique Luong O.D. Onset: 06/25/2015 Bilateral primary open angle glaucoma Claudy Medina M.D. Onset: 09/09/2016 Vitreous degeneration Claudy Medina M.D. Onset: 03/10/2017 Hyperthyroidism Onset: Muscle weakness Onset: Tear film insufficiency Claudy Medina M.D. Onset: 09/02/2017 Chalazion Princess Marrufo O.D. Onset: 10/27/2017 Conjunctival concretion Princess Marrufo O.D. 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 reaction 03/13/2015 Vioxx swelling in legs and feet 03/13/2015 Hydrochlorothiazide swelling in legs and feet 03/13/2015 Nabumetone ? reaction 03/13/2015 Amlodipine 09/02/2017 Diltiazem 09/02/2017 Maxide 09/02/2017 Medications Active Medications SIG Qnty Indications Ordering Date Provider Brimonidine Tartrate 1 drop both 30ml Claudy Medina, 10/30/2018 0.2% eyes twice a M.D. Solution day Latanoprost 1 drop both 7.500ml Claudy Medina, 05/01/2018 0.005% Solution eyes every M.D. night Refresh 1 drop both Claudy Medina, 03/12/2015 1.4-0.6% Solution eyes twice a M.D. day Lisinopril Kevin Toure M.D. 20mg Tablets Glucosamine Unknown 500mg Capsules Calcium 500/D Unknown [id number] Chewtabs Vitamin B12 Unknown 1000mcg Tablets ER Spironolactone Take One Tablet Unknown 25mg Tablets By Mouth Every Day Aspirin Low Dose Unknown 81mg Chewtabs Tylenol as needed Unknown 500mg Tablets Gas-X Extra Strength Unknown 125mg Capsules Gabapentin 1 capsule 4 Unknown 100mg Capsules times daily Methimazole Unknown 5mg Tablets Lansoprazole Unknown 30mg Capsules DR History Medications Latanoprost 1 drop both eyes 2.500ml Claudy Chino 05/01/2018 - 0.005% every night Ximena Medina 04/29/2018 Solution Neomycin/Polymyxin/De apply 08/11" in 3.500gm H00.14 Princess Chino 10/27/2017 - xamethasone left eyes at [facility] O.Varun 01/07/2018 bedtime for 2 [id number] weeks. Ointment Pred Forte One drop three 5ml H40.1131 Claudy Chino 09/02/2017 - 1% times a day for Ximena Medina 10/26/2017 Suspension three days OD, then three times a day for three days OS. Only after procedure. Timolol Maleate 1 drop left eye 10ml Z96.1 Claudy Chino 05/29/2015 - 0.5% two times a day Ximena Medina 06/16/2015 Solution Ciprofloxacin HCL instill one drop 5ml Claudy Chino 05/19/2015 - 0.3% in the left eye Ximena Medina 06/16/2015 Solution three times a day, start the day before surgery Ketorolac use one drop in 10ml Claudy Chino 05/19/2015 - Tromethamine the right eye Ximena Medina 06/24/2015 0.5% two times a day, Solution start the day before surgery and three times a day left eye Pred Forte 1 drop left eye 15ml Claudy Chino 05/19/2015 - 1% three times a Ximena Medina 06/24/2015 Suspension day taper as directed after surgery and two times a day right eye taper as directed Alphagan P 1 drop in both 90day H40.11x1 Claudy Chino 05/12/2015 - 0.1% eyes twice a day Ximena Medina 09/05/2015 Solution Pred Forte One drop three 1ml 365.11 Claudy Chino 03/13/2015 - 1% times a day in Ximena Medina 05/11/2015 Suspension the eye that has the procedure. Nexium Crepet, Yoli - 40mg Capsules DR Bueno 08/08/2018 Cartia XT CochKevin - 300mg Caps SHAWN Bueno 03/09/2017 24HR Vitamin D every day Unknown - 1000Unit 03/07/2016 Tablets Amoxicillin Unknown - 500mg 05/28/2015 Capsules Lorazepam Unknown - 0.5mg Tablets 10/29/2018 Methimazole Unknown - 5mg Tablets 11/27/2017 Vital Signs Date Vital Result Comment 10/10/2017 2:15pm BP Systolic 145 mmHg BP Diastolic 80 mmHg Heart Rate 75 /min Respiratory Rate 15 /min 10/04/2017 2:14pm BP Systolic 125 mmHg BP Diastolic 79 mmHg Heart Rate 73 /min Respiratory Rate 15 /min Procedures Date Code Description Status 11/14/2018 519 Eyeglass Strip Deburrer Completed 10/30/2018 75731 Est Patient Intermediate Exam Completed 05/31/2018 94818 Determination Of Refractive State Completed 05/01/2018 45361 Scanning Computerized Ophthalmic Diagnostic Imag Posterior Completed Seg On 05/01/2018 67332 Visual Field Exam Extended Completed 05/01/2018 49013 Est Patient Comprehensive Exam Completed 10/27/2017 10867 Est Patient Intermediate Exam Completed 10/10/2017 53583 Trabeculoplasty By Laser Surgery Completed 10/04/2017 40724 Trabeculoplasty By Laser Surgery Completed 09/02/2017 40869 Est Patient Intermediate Exam Completed 09/02/2017 89723 Determination Of Refractive State Completed 03/10/2017 49879 Scanning Computerized Ophthalmic Diagnostic Imag Posterior Completed Seg On 03/10/2017 25806 Visual Field Exam Extended Completed 03/10/2017 71794 Est Patient Comprehensive Exam Completed 09/09/2016 96200 Est Patient Intermediate Exam Completed 03/08/2016 77275 Scanning Computerized Ophthalmic Diagnostic Imag Posterior Completed Seg On 03/08/2016 68412 Visual Field Exam Extended Completed 03/08/2016 43366 Est Patient Comprehensive Exam Completed 10/03/2015 91641 Est Patient Intermediate Exam Completed 09/05/2015 43921 Est Patient Intermediate Exam Completed 06/04/2015 61644 Cataract Surgery Complex Completed 05/28/2015 98912 Extracapsular Cataract Extraction W/Intraocular Lens Completed 05/19/2015 74507 Ophthalmic Biometry Completed 05/19/2015 30416 Ophthalmic Biometry Completed 05/19/2015 51042 Scanning Computerized Opthalmic Diagnostic Posterior Seg Completed Retina 05/12/2015 05011 Visual Field Exam Extended Completed 04/21/2015 55428 Trabeculoplasty By Laser Surgery Completed 04/07/2015 80165 Trabeculoplasty By Laser Surgery Completed 03/13/2015 17053 Fundus Photography With Interpretation And Report Completed 03/13/2015 74486 Est Patient Comprehensive Exam Completed 09/13/2014 88033 Visual Field Exam Extended Completed 09/13/2014 83074 Gonioscopy Completed 09/13/2014 86110 Est Patient Intermediate Exam Completed 06/06/2014 73696 Scanning Computerized Ophthalmic Diagnostic Imag Posterior Completed Seg On 06/06/2014 50425 Visual Field Exam Extended Completed 06/06/2014 73527 New Patient Comprehensive Exam Completed 06/06/2014 06648 Pachymetry Completed Encounters Type Date Location Provider Dx Diagnosis Office Visit 11/07/2018 Dominique Yoo, H40.1131 Primary 8:45a anusha HOWE O.D. open-angle glaucoma, bilateral, mild stage Office Visit 05/31/2018 Dominique Yoo, H40.1131 Primary 8:00a anusha HOWE O.D. open-angle glaucoma, bilateral, mild stage H52.13 Myopia, bilateral H52.4 Presbyopia H52.223 Regular astigmatism, bilateral Office Visit 01/10/2018 8:30a Claudy Chino H40.1131 Primary MD Medina pc Arleo, M.D. open-angle glaucoma, bilateral, mild stage Office Visit 11/28/2017 8:30a Claudy Chino H40.1131 Primary MD Carol, anusha Medina M.D. open-angle glaucoma, bilateral, mild stage Office Visit 10/31/2017 4:10p Claudy Chino H00.14 Chalazion left MD Carol, pc Ryan Marrufo upper eyelid H11.122 Conjunctival concretions, left eye H40.1121 Primary open-angle glaucoma, left eye, mild stage H40.1111 Primary open-angle glaucoma, right eye, mild stage Office Visit 05/19/2015 8:30a Claudy Chino H25.13 Age-related nuclear MD Caorl, anusha Medina M.D. cataract, bilateral H40.11x1 Primary open-angle glaucoma, mild stage Office Visit 05/12/2015 10:30a Claudy Chino H40.11x1 Lars Medina MD, anusha Medina M.D. open-angle glaucoma, mild stage H25.13 Age-related nuclear cataract, bilateral Plan of Treatment 02/06/2019 - Claudy Medina M.D.H40.1131 Primary open-angle glaucoma, bilateral, mild stageComments:Smoking can increase the risk of developing or worsening any eye related disease, as well as affect your overall health. If you are a smoker, we strongly recommend that you quit.If you are not a smoker, we strongly recommend that you do not start. Your glaucoma is stable at this time.Your eye pressure is within an acceptable range, and your testing does not show any further deterioration at this time. Please continue your treatment.Follow up:6 Month Follow Up IOP Check At your next visit, we are not planning to dilate your eyes. However, if you have any changes in your vision or new symptoms, there are certain situations that require us to dilate your eyes. If Dr. Medina requests any additional testing, that may require extra time. If you have any questions before your next appointment, please call our office at .
[2019-02-24 10:42] VITALS: BP 155/69
--- NOTE | 2019-02-24 10:56 | UC ---
Knee Pain HPI - HPI Summary HPI Summary: this patient is a 78-year-old female who presents to the urgent care with chief complaint of right knee pain. She reports that yesterday she was carrying her computer in the kitchen and accidentally she tripped and fell on top of the right knee. Since then the patient is having knee pain especially when she turns. She is able to place weight in the right knee however he has become more painful this morning. Therefore, she decided to come to the urgent care for further assessment. she denies any head trauma, denies any neck trauma, denies any hip pain or any other upper extremities pain. She denies any loss of consciousness. She has no other complaints - History of Current Complaint Chief Complaint: UCLowerExtremity Stated Complaint: KNEE INJURY Time Seen by Provider: 02/24/19 10:46 Hx Obtained From: Patient Onset/Duration: Sudden Onset Severity Initially: Moderate Severity Currently: Severe Pain Intensity: 8 - Allergies/Home Medications Allergies/Adverse Reactions: Allergies Allergy/AdvReac Type Severity Reaction Status Date / Time amlodipine Allergy dizziness, Verified 02/24/19 10:51 BLE edema atenolol Allergy Leg Cramps Verified 02/24/19 10:51 dexamethasone Allergy Unknown Verified 02/24/19 10:51 Reaction Details diltiazem Allergy muscle Verified 02/24/19 10:51 aches hydrochlorothiazide Allergy DEHYDRATION Verified 02/24/19 10:51 AND "OTHER PROBLEMS" hydrocodone Allergy severe gi Verified 02/24/19 10:51 upset lactose Allergy GI Upset Verified 02/24/19 10:51 nabumetone [From Relafen] Allergy FEET AND Verified 02/24/19 10:51 ANKLE SWELLING, RASH, NUMBNESS rofecoxib [From Vioxx] Allergy Swelling Verified 02/24/19 10:51 Sulfa (Sulfonamide Allergy Unknown Verified 02/24/19 10:51 Antibiotics) Reaction Details escitalopram AdvReac Nausea Verified 02/24/19 10:51 MAXIDE AdvReac Intermediate See Comment Uncoded 02/24/19 10:51 Home Medications: Home Medications Simethicone [Gas-X] 1 tab PO AC PRN 02/24/19 [History Confirmed 02/24/19] PMH/Surg Hx/FS Hx/Imm Hx Previously Healthy: Yes Cardiovascular History: Hypertension - Surgical History Surgical History: Yes Surgery Procedure, Year, and Place: LAMINECTOMY, 2007, [facility]. TUBAL LIGATION 1976. CATARACT BILATERAL. TONSILLECTOMY A CHILD - Family History Known Family History: Positive: Hypertension - Social History Alcohol Use: None Substance Use Type: None Smoking Status (MU): Former Smoker Amount Used/How Often: 4-5 CIGARETTES PER DAY X 5-6 YEARS Have You Smoked in the Last Year: No When Did the Patient Quit Smoking/Using Tobacco: 45 YEARS AGO Review of Systems All Other Systems Reviewed And Are Negative: Yes Constitutional: Positive: Negative Skin: Positive: Negative Eyes: Positive: Negative ENT: Positive: Negative Respiratory: Positive: Negative Cardiovascular: Positive: Negative Gastrointestinal: Positive: Negative Genitourinary: Positive: Negative Motor: Positive: Negative Neurovascular: Positive: Negative Musculoskeletal: Positive: Arthralgia, Other: - right knee pain Neurological: Positive: Negative Psychological: Positive: Negative Is Patient Immunocompromised?: No Physical Exam - Summary Physical Exam Summary: VITAL SIGNS: Reviewed. GENERAL: Patient is a well developed and nourished female who is lying comfortably in the stretcher. Patient is not in any acute respiratory distress. HEAD AND FACE: No signs of trauma. No ecchymosis, hematomas or skull depressions. No sinus tenderness. EYES: PERRLA, EOMI x 2, No injected conjunctiva, no nystagmus. EARS: Hearing grossly intact. Ear canals and tympanic membranes are within normal limits. MOUTH: Oropharynx within normal limits. NECK: Supple, trachea is midline, no adenopathy, no JVD, no carotid bruit, no c- spine tenderness, neck with full ROM. CHEST: Symmetric, no tenderness at palpation LUNGS: Clear to auscultation bilaterally. No wheezing or crackles. CVS: Regular rate and rhythm, S1 and S2 present, no murmurs or gallops appreciated. ABDOMEN: Soft, non-tender. No signs of distention. No rebound no guarding, and no masses palpated. Bowel sounds are normal. EXTREMITIES: complaining with a slight swelling especially in the lateral aspect of the right knee, no deformity, decreased range of motion secondary to pain. Draw test is negative. NEURO: Alert and oriented x 3. No acute neurological deficits. Speech is normal and follows commands. SKIN: Dry and warm Triage Information Reviewed: Yes Appearance: Well-Appearing Vital Signs: Initial Vital Signs Temp 97.6 F 02/24/19 10:38 Pulse 74 02/24/19 10:38 Resp 16 02/24/19 10:38 BP 155/69 02/24/19 10:38 Pulse Ox 100 02/24/19 10:38 Vital Signs Reviewed: Yes Diagnostics - Radiology Knee x ray Radiology Interpretation Completed By: Radiologist Summary of Radiographic Findings: Degenerative changes medial compartment right knee. Knee Pain Course/Dx - Course Course Of Treatment: x-ray of the right knee impression:negative for an acute fracture dislocation. Degenerative changes medial compartment right knee. I believe that her injury is in the ligaments or meniscus. Therefore, the patient will be placed in the knee immobilizer, given crutches and discharge the patient home with follow-up with orthopedics. Patient was given Toradol for pain. She was recommended to return to the urgent care or go to the emergency department if the symptoms worsen. Patient is hemodynamically stable alert and oriented 3. - Differential Dx/Diagnosis Provider Diagnosis: Knee injuries, Knee pain, acute Discharge - Sign-Out/Discharge Documenting (check all that apply): Patient Departure All imaging exams completed and their final reports reviewed: Yes - Discharge Plan Condition: Improved Disposition: HOME Patient Education Materials: Knee Pain (ED), Arthralgia (ED) Referrals: Yoli Echevarria MD [Primary Care Provider] - Max Ferrer MD [Medical Doctor] - Additional Instructions: Take ibuprofen or Tylenol for pain Increase your fluid intake F/U with PCP in the next 2-3 days Return to the if symptoms worsen - Billing Disposition and Condition Condition: IMPROVED Disposition: Home
[2019-02-24] MEDS ORDERED: Ketorolac *IM* INJ* 60 MG/2 ML VIAL IM ONE (11:20)
== END 2019-02-24 11:47 | disposition home or self-care (01) ==
LOC: UCEAST 10:31
DX: S89.91XA Unspecified injury of right lower leg, initial encounter (principal); W10.9XXA Fall (on) (from) unspecified stairs and steps, initial encounter; Y93.89 Activity, other specified; Y92.019 Unspecified place in single-family (private) house as the place of occurrence of the external cause; Y99.8 Other external cause status; I10 Essential (primary) hypertension; Z88.2 Allergy status to sulfonamides; Z87.891 Personal history of nicotine dependence
CPT/HCPCS: 96372; 99213; G0463; J1885

== ENCOUNTER 2019-03-10 06:20 | Emergency (ER) | payer MEDICARE, OTHER ==
[2019-03-10] MEDS ORDERED: LORazepam INJ* 2 MG/ML 1 ML VIAL IV PUSH ONE (06:37)
[2019-03-10] MEDS ORDERED: Ondansetron INJ* 2 MG/ML VIAL IV ONE (06:37)
[2019-03-10] MEDS ORDERED: Al Hydrox/Mg Hydrox/Simet LIQ* 30 ML UDC PO ONE (06:37)
[2019-03-10] MEDS ORDERED: Lorazepam PYXIS KEY PRN (06:37)
[2019-03-10] MEDS ORDERED: Famotidine IV* 10 MG/ML 2 ML (20 mg) IV SLOW PU ONE (06:37)
[2019-03-10] MEDS ORDERED: Lorazepam PYXIS KEY ONE (06:45)
--- OUTSIDE RECORDS SUMMARY | 2019-03-10 07:22 | XMS REPORT | Continuity of Care Document ---
:1940 External Reference #:[id number] Author Name Saumya España Care Team Providers Name Role Phone Yoli Echevarria MD Primary Care Physician Unavailable Payers Date Identification Numbers Payment Provider Subscriber Policy Number: [id number] Medicare Judith Sharma PayID: [id number] [address] [place] [address] Policy Number: [id number] [employer] Insurance Judith Sharma PayID: [id number] [address] [place] [address] Problems Active Problems Provider Date Skin sensation disturbance Ben Patel M.D. Onset: 09/06/2017 Abnormal gait Ben Patel M.D. Onset: 09/06/2017 Polyneuropathy Ben Patel M.D. Onset: 10/06/2017 Bilateral carpal tunnel syndrome Ben Patel M.D. Onset: 12/21/2018 Localized, primary osteoarthritis Katlyn Moy M.D. Onset: 02/26/2019 Family History Date Family Member(s) Observation Comments General Heart Disease General Hypertension General Diabetes Father due to Heart Disease () Mother due to Heart Disease () Social History Type Date Description Comments Sex Unknown Marital Status Lives With Spouse Occupation Retired Hand Dominance Left-handed ETOH Use Denies alcohol use Tobacco Use Start: Unknown End: Patient is a former smoker Unknown Smoking Status Reviewed: 02/26/19 Patient is a former smoker Exercise Type/Frequency Exercises regularly Allergies, Adverse Reactions, Alerts Active Allergies Reaction Severity Comments Date Amlodipine 09/06/2017 Cardizem 09/06/2017 Dexamethasone 09/06/2017 Hydrochlorothiazide 09/06/2017 Nabumetone 09/06/2017 Rofecoxib 09/06/2017 Sulfa Antibiotics 09/06/2017 Tenormin 09/06/2017 Escitalopram 01/08/2019 Rofecoxib 01/08/2019 Nabumetone 01/08/2019 Maxide 02/26/2019 Medications Active Medications SIG Qnty Indications Ordering [...] 1 tab po daily Unknown 30mg Capsules Gas-X Extra Strength once daily Unknown Capsules [...] D 1000-1500Units Unknown one tab per day [id number] Tablets Acetaminophen 1-2 tabs 3x a Unknown 500mg day as needed Tablets History Medications Gabapentin 1 cap by mouth 360caps G62.9 Ben Patel, 07/14/2018 - 300mg four times a day M.D. 12/21/2018 Capsules Gabapentin 2 capsule three 180caps G62.9 Ben Jorge, 06/23/2018 - 100mg times daily. M.D. 07/14/2018 Capsules Gabapentin 1 capsule three 90caps G62.9 Ben Patel, 04/13/2018 - 100mg times daily. M.D. 06/23/2018 Capsules Nexium 1 by mouth every Unknown - 40mg day 09/05/2017 Capsules Lorazepam As directed Unknown - 0.5mg 12/20/2018 Tablets Nexium 1 by mouth every Unknown - 40mg day 12/20/2018 Capsules Vital Signs Date Vital Result Comment 02/26/2019 1:48pm Height 68.5 inches 5'8.50" Weight 182.00 lb Heart Rate 72 /min BP Systolic 174 mmHg BP Diastolic 78 mmHg BMI (Body Mass Index) 27.3 kg/m2 02/09/2019 8:13am Height 69 inches 5'9" Weight 180.00 lb Heart Rate 80 /min BP Systolic 138 mmHg BP Diastolic 82 mmHg Respiratory Rate 16 /min Body Temperature 97.4 F Pain Level 0 BMI (Body Mass Index) 26.6 kg/m2 01/29/2019 1:56pm Height 69 inches 5'9" Weight [...] Result H/L Range Note Laboratory test 09/06/2017 [facility] Vitamin B12 566 pg/mL N 180-9[address] [place] [address] [phone] Folic Acid (Folate) 18.64 ng/mL >3.99 Erythrocyte Sed Rate 12 mm/Hr N 0-40 C Reactive Protein < 1.00 mg/L N < 5.00 2 Protein 09/06/2017 [facility] Total 7.6 g/dL 6.3 - Electrophoresis [address] Protein(Pep) 7.9 [place] [address] [phone] Albumin 3.7 g/dL 3.4-4.7 Alpha-1 Globulin 0.3 g/dL 0.1-0.3 Alpha-2 Globulin 1.2 g/dL Abnormal 0.6-1.0 Beta Globulin 1.1 g/dL 0.7-1.2 Gamma Globulin 1.3 g/dL 0.6-1.6 Albumin/Globulin Ratio 0.94 Impression See Comment 3 1 Normal Range 180 to 914 Indeterminate Range 145 to 180 Deficient Range <145 2 Acute inflammation: >10.00 3 RESULT: No apparent monoclonal protein on serum electrophoresis. Test Performed by: [address] [address] Procedures Date Code Description Status 02/26/2019 60976 Inject/Drain Joint/Bursa Major W/O US Completed 01/30/2019 75557 Carpal Tunnel Release Completed 01/30/2019 85129 Carpal Tunnel Release Completed 12/26/2018 41720 Nerve Conduction 07-08 Studies Completed 12/26/2018 57249 Needle Electromyography Each Extremity W/Related Completed Paraspinal Areas 09/20/2017 79833 Nerve Conduction 05-06 Studies Completed 09/20/2017 45825 Needle Electromyography Complete, Five Or More Muscles Completed Studied Encounters Type Date Location Provider Dx Diagnosis Office Visit 01/08/2019 [facility] Candice Waggoner, G56.01 Carpal tunnel 8:00a [facility] M.D. syndrome, right [facility] upper limb Office Visit 12/21/2018 [facility] Ben Patel, G62.9 Polyneuropathy, 9:45a [facility] [employer] M.D. unspecified R26.81 Unsteadiness on feet G56.03 Carpal tunnel syndrome, bilateral upper limbs Office Visit 07/14/2018 [facility] Contreras G62.9 Polyneuropathy, 9:15a Farhat Patel M.D. unspecified [facility] [employer] R26.81 Unsteadiness on feet Office Visit 04/13/2018 Max Contreras G62.9 Polyneuropathy, 9:15a Farhat Patel M.D. unspecified [facility] [employer] R26.81 Unsteadiness on feet R20.2 Paresthesia of skin Office Visit 01/09/2018 Agraqu[facility] Contreras G62.9 Polyneuropathy, 9:00a Farhat Patel M.D. unspecified [facility] R20.2 Paresthesia of skin R26.81 Unsteadiness on feet Office Visit 10/06/2017 Agraqu[facility] Contreras G62.9 Polyneuropathy, 9:15a Farhat Patel M.D. unspecified [facility] R20.2 Paresthesia of skin R26.81 Unsteadiness on feet Office Visit 09/06/2017 Ag[place]qu[place] Patel R20.2 Paresthesia of 9:30a Neurologic Ximena skin [facility] R20.0 Anesthesia of skin R26.81 Unsteadiness on feet Plan of Treatment Future Appointment(s):03/14/2019 8:30 am - Katlyn Moy M.D. at [facility]03/08/2019 8:45 am - Candice Waggoner M.D. at [facility]04/23/2019 8:30 am - Ben Patel M.D. at [facility]02/26/2019 - Katlyn Moy M.D.M25.561 Pain in right kneeFollow up:Follow up: 2 wbthhU18.461 Effusion, right kneeM17.11 Unilateral primary osteoarthritis, right knee
--- OUTSIDE RECORDS SUMMARY | 2019-03-10 07:22 | XMS REPORT | Continuity of Care Document ---
:1940 External Reference #:[id number] Author Name Irene Crenshaw Care Team Providers Name Role Phone Yoli Echevarria MD Primary Care Physician Unavailable Payers Date Identification Numbers Payment Provider Subscriber Policy Number: [id number] Medicare Judith Sharma PayID: [id number] [address] [place] [address] Expires: 2019 Policy Number: [id number] Medicare Judith Sharma PayID: [id number] [address] [place] [address] Policy Number: [id number] [employer] Judith Sharma Group Number: [id number] [address] PayID: [id number] [place] [address] Problems Active Problems Provider Date Skin sensation [...] a former smoker Unknown Smoking Status Reviewed: 03/08/19 Patient is a former smoker Exercise Type/Frequency [...] Unknown 25mg every day Tablets Tapazole 1 tab by mouth Unknown 5mg Tablets daily Lisinopril 1 by mouth Unknown 20mg Tablets every day Glucosamine Sulfate 1 by mouth Unknown twice a day 1000mg Capsules Vitamin B-12 1 by mouth Unknown 1000mcg every day Lozenges Calcium Citrate + D 1000-1500Units Unknown one tab per day [id number] Tablets Acetaminophen 1-2 tabs 3x a Unknown [...] every Unknown - 40mg day 12/20/2018 Capsules Medications Administered in Office Medication SIG Qnty Indications Ordering Provider Date Depomedrol 40MG Katlyn Moy M.D. 02/26/2019 Injection Vital Signs Date Vital Result Comment 03/08/2019 8:36am Height 68.5 inches 5'8.50" Weight 180.00 lb Heart Rate 64 /min BP Systolic Sitting 118 mmHg BP Diastolic Sitting 68 mmHg Respiratory Rate 14 /min Pain Level 0 O2 % BldC Oximetry 98 % BMI (Body Mass Index) 27.0 kg/m2 02/26/2019 1:48pm Height 68.5 inches 5'8.50" Weight [...] Result H/L Range Note Laboratory test 09/06/2017 [facility] Vitamin B12 566 pg/mL Normal 180-[address] [place] [address] [phone] Folic Acid (Folate) 18.64 ng/mL >3.99 Erythrocyte Sed Rate 12 mm/Hr Normal 0-40 C Reactive Protein < 1.00 mg/L Normal < 5.00 2 Protein 09/06/2017 [facility] Total 7.6 g/dL 6.3 - Electrophoresis [address] Protein(Pep) 7.9 [place] [address] [phone] Albumin 3.7 g/dL 3.4-4.7 Alpha-1 Globulin 0.3 g/dL 0.1-0.3 Alpha-2 Globulin 1.2 g/dL Abnormal 0.6-1.0 Beta Globulin 1.1 g/dL 0.7-1.2 Gamma Globulin 1.3 g/dL 0.6-1.6 Albumin/Globulin Ratio 0.94 Impression See Comment 3 1 Normal Range 180 to 914 Indeterminate Range 145 to 180 Deficient Range <145 2 Acute inflammation: >10.00 3 RESULT: No apparent monoclonal protein on serum electrophoresis. Test Performed by: [address] [address] Procedures Date Code Description Status 02/26/2019 52314 Inject/Drain Joint/Bursa Major W/O US Completed 01/30/2019 34015 Carpal Tunnel Release Completed 01/30/2019 26164 Carpal Tunnel Release Completed 12/26/2018 28464 Nerve Conduction 07-08 Studies Completed 12/26/2018 92537 Needle Electromyography Each Extremity W/Related Completed Paraspinal Areas 09/20/2017 05274 Nerve Conduction 05-06 Studies Completed 09/20/2017 83699 Needle Electromyography Complete, Five Or More Muscles Completed Studied Encounters Type Date Location Provider Dx Diagnosis Office Visit 02/26/2019 [facility] Katlyn Moy, M25.561 Pain in right 1:45p [facility] C.M.AFran [place] knee M25.461 Effusion, right knee M17.11 Unilateral primary osteoarthritis, right knee W19.xxxA Unspecified fall, initial encounter Office Visit 01/08/2019 [facility] Candice Waggoner, G56.01 Carpal tunnel 8:00a Services Of M.DFran syndrome, right [facility] upper limb Office Visit 12/21/2018 Max Patel G62.9 Polyneuropathy, 9:45a Neurologic Ximena unspecified [facility] [employer] R26.81 Unsteadiness on feet G56.03 Carpal tunnel syndrome, bilateral upper limbs Office Visit 07/14/2018 Max Contreras G62.9 Polyneuropathy, 9:15a Farhat Patel M.D. unspecified [facility] [employer] R26.81 Unsteadiness on feet Office Visit 04/13/2018 Max Contreras G62.9 Polyneuropathy, 9:15a Farhat Patel M.D. unspecified [facility] [employer] R26.81 Unsteadiness on feet R20.2 Paresthesia of skin Office Visit 01/09/2018 Max Contreras G62.9 Polyneuropathy, 9:00a Farhat Patel M.D. unspecified [facility] [employer] R20.2 Paresthesia of skin R26.81 Unsteadiness on feet Office Visit 10/06/2017 Max Contreras G62.9 Polyneuropathy, 9:15a Farhat Patel M.D. unspecified Services Of [facility] R20.2 Paresthesia of skin R26.81 Unsteadiness on feet Office Visit 09/06/2017 [place] Ben Patel, R20.2 Paresthesia of 9:30a Neurologic Ximena skin [facility] R20.0 Anesthesia of skin R26.81 Unsteadiness on feet Plan of Treatment Future Appointment(s):03/13/2019 12:30 pm - Cyndi Law PA-C at [facility]03/13/2019 12:30 pm - Candice Waggoner M.D. at [facility]03/22/2019 8:45 am - Candice Waggoner M.D. at [facility]03/14/2019 8:30 am - Katlyn Moy M.D. at [facility]04/23/2019 8:30 am - Ben Patel M.D. at [place]03/08/2019 - Candice Waggoner M.D.G56.01 Carpal tunnel syndrome, right upper limbG56.22 Lesion of ulnar nerve, left upper limbFollow up:Follow up: 9-10 days dkuuwyU84.02 Carpal tunnel syndrome, left upper limbFollow up:postop
[2019-03-10 07:24] LABS: Hematocrit 39 % (35-47); Hemoglobin 14.2 g/dL (12.0-16.0); Mean Corpuscular HGB Conc 36 g/dL (31-36); Mean Corpuscular Hemoglobin 35 pg (27-31); Mean Corpuscular Volume 96 fL (80-97); Mean Platelet Volume 9.5 fL (7.4-10.4); Platelet Count 204 10^3/uL (150-450); Red Blood Count 4.08 10^6 /uL (3.70-4.87); Red Cell Distribution Width 13 % (10-15); White Blood Count 8.6 10^3/uL (3.5-10.8)
[2019-03-10 07:26] LABS: ALT 14 U/L (7-52); AST 13 U/L (13-39); Albumin 4.6 g/dL (3.2-5.2); Albumin/Globulin Ratio 1.5 (1-3); Alkaline Phosphatase 94 U/L (34-104); Amylase 56 U/L (29-103); Anion Gap 10 mmol/L (2-11); BUN/Creatinine Ratio 22.8 (8-20); Blood Urea Nitrogen 21 mg/dL (6-24); C Reactive Protein < 1.00 mg/L (<8.01); CO2 Carbon Dioxide 20 mmol/L (22-32); Chloride 95 mmol/L (101-111); EGFR African American 71.6 (>60); EGFR Non-African American 59.2 (>60); Globulin 3.1 g/dL (2-4); Glucose 120 mg/dL (70-100); INR 1.01 (0.82-1.09); Magnesium 1.7 mg/dL (1.9-2.7); Potassium 4.6 mmol/L (3.5-5.0); Sodium 125 mmol/L (135-145); Total Protein 7.7 g/dL (6.4-8.9)
[2019-03-10 07:28] LABS: Troponin I 0.01 ng/mL (<0.04)
[2019-03-10] MEDS ORDERED: NS 0.9% 1000 ML** 1,000 ML IV ONE (07:32)
[2019-03-10 08:02] LABS: ABS Lymphocytes 0.9 10^3/ul (1.0-4.8); ABS Monocytes 0.5 10^3/ul (0-0.8); ABS Neutrophils 7.2 10^3/ul (1.5-7.7); Eosinophil % 0.1 %; Lymphocyte % 10.2 %; Nucleated Red Blood Cells % 0.1
--- NOTE | 2019-03-10 08:30 | ED ---
Abdominal Pain/Female - HPI Summary HPI Summary: This patient is a 78-year-old female with a history of hypertension, esophageal reflux and hyperthyroidism presenting to the ED with severe epigastric pain since last evening. She states she did not eat anything unusual. She states she has had this pain in the past, however it has usually dissipated after several hours. She states this pain is a "gnawing" pain, nonradiating and has been intermittent since last evening. Symptoms are worse with lying flat and better with sitting upright. She states this does feel like her typical GERD- like symptoms. She denies any chest pain. Denies any shortness of breath. Patient is breathing heavily on arrival and states this is due to her anxiety as she is "unsure what is happening." She denies any known CAD. Hx of HTN. Currently taking spironolactone and lisinopril. She has been on these medications for several years. She does state she was recently switched over from Nexium to Prevacid. She does not believe this is helping her symptoms as much as previously when on omeprazole and nexium, she did not have epigastric pain. She denies any abdominal pain otherwise. She denies any urinary symptoms or back pain. Continues to have normal bowel movements, last bowel movement was yesterday and normal in appearance. She endorses slight nausea, but no vomiting. She denies any fevers, sweats, chills. - History of Current Complaint Chief Complaint: EDAbdPain Stated Complaint: SICK ALL NIGHT PER PT Time Seen by Provider: 03/10/19 06:36 Hx Obtained From: Patient ?: No Onset/Duration: Sudden Onset Timing: Constant Severity Initially: Moderate Severity Currently: Moderate Pain Intensity: 6 Location: Epigastric Radiates: No Character: Sharp - gnawing pain Aggravating Factor(s): Nothing Alleviating Factor(s): Nothing Associated Signs and Symptoms: Positive: Negative - Risk Factors Ectopic Risk Factor: Negative Ovarian Torsion Risk Factor: Negative Allergies/Adverse Reactions: Allergies Allergy/AdvReac Type Severity Reaction Status Date / Time nabumetone [From Relafen] Allergy Intermediate FEET AND Verified 03/09/19 13:15 ANKLE SWELLING, RASH, NUMBNESS rofecoxib [From Vioxx] Allergy Intermediate Swelling Verified 03/09/19 13:15 amlodipine Allergy dizziness, Verified 03/09/19 13:15 BLE edema dexamethasone Allergy Unknown Verified 03/09/19 13:15 Reaction Details diltiazem Allergy muscle Verified 03/09/19 13:15 aches Sulfa (Sulfonamide Allergy Unknown Verified 03/09/19 13:15 Antibiotics) Reaction Details hydrocodone AdvReac Severe GI Upset Verified 03/10/19 07:18 atenolol AdvReac Leg Cramps Verified 03/09/19 13:15 escitalopram AdvReac Nausea Verified 03/09/19 13:15 hydrochlorothiazide AdvReac DEHYDRATION Verified 03/09/19 13:15 AND "OTHER PROBLEMS" lactose AdvReac GI Upset Verified 03/09/19 13:15 MAXIDE AdvReac Intermediate See Comment Uncoded 03/09/19 13:15 PMH/Surg Hx/FS Hx/Imm Hx Previously Healthy: Yes Endocrine/Hematology History: Reports: Hx Thyroid Disease - HYPERTHYROIDISM Cardiovascular History: Reports: Hx Hypertension - ON MEDICATION FOR, Other 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 Respiratory History: Denies: Other Respiratory Problems/Disorders GI History: Reports: Hx Gastroesophageal Reflux Disease - ROUTINE MEDICATION FOR Denies: Other GI Disorders History: Denies: Other Problems/Disorders Musculoskeletal History: Reports: Hx Arthritis - HANDS, BACK, KNEES Denies: Other Musculoskeletal History Sensory History: Reports: Hx Cataracts - BILATERAL, Hx Contacts or Glasses - GLASSES, Hx Glaucoma - BILATERAL Denies: Hx Hearing Aid Opthamlomology History: Reports: Hx Cataracts - BILATERAL, Hx Contacts or Glasses - GLASSES, Hx Glaucoma - BILATERAL Neurological History: Denies: Other Neuro Impairments/Disorders - Surgical History Surgery Procedure, Year, and Place: LAMINECTOMY, 2006, [facility]. TUBAL LIGATION 1976. CATARACT BILATERAL. TONSILLECTOMY A CHILD Hx Anesthesia Reactions: Yes - DIFFICULTY TO INTUBATE - Immunization History Hx Pertussis Vaccination: No Immunizations Up to Date: Yes Infectious Disease History: No Infectious Disease History: Denies: Traveled Outside the [place] in Last 30 Days - Family History Known Family History: Positive: Hypertension - Social History Occupation: Unemployed Lives: With Family Alcohol Use: None Hx Substance Use: No Substance Use Type: Reports: None Smoking Status (MU): Former Smoker Amount Used/How Often: 4-5 CIGARETTES PER DAY X 5-6 YEARS Have You Smoked in the Last Year: No Review of Systems Constitutional: Negative Negative: Fever, Chills, Fatigue, Skin Diaphoresis Positive: Other - epigastric pain. Negative: Palpitations, Chest Pain Negative: Shortness Of Breath, Cough Positive: Abdominal Pain - epigastric pain, Nausea. Negative: Vomiting, Diarrhea Genitourinary: Negative Positive: no symptoms reported, see HPI Negative: Rash, Bruising Negative: Headache, Weakness, Paresthesia Psychological: Normal All Other Systems Reviewed And Are Negative: Yes Physical Exam Triage Information Reviewed: Yes Vital Signs On Initial Exam: Initial Vitals Temp Pulse Resp BP Pulse Ox 97.1 F 75 24 155/91 100 03/10/19 06:21 03/10/19 06:21 03/10/19 06:21 03/10/19 06:21 03/10/19 06:21 Vital Signs Reviewed: Yes Appearance: Positive: Well-Appearing, Well-Nourished Skin: Positive: Warm, Skin Color Reflects Adequate Perfusion Head/Face: Positive: Normal Head/Face Inspection Eyes: Positive: FLASH, Conjunctiva Clear Neck: Positive: Supple, No Lymphadenopathy Respiratory/Lung Sounds: Positive: Clear to Auscultation, Breath Sounds Present , Other - heavy breathing on arrival - pt states d/t her anxiety Cardiovascular: Positive: RRR, Pulses are Symmetrical in both Upper and Lower Extremities Abdomen Description: Positive: Nontender, Soft. Negative: CVA Tenderness (R), CVA Tenderness (L) Musculoskeletal: Positive: Normal, Strength/ROM Intact Neurological: Positive: Sensory/Motor Intact, Alert, Oriented to Person Place, Time, Speech Normal Psychiatric: Positive: Affect/Mood Appropriate AVPU Assessment: Alert Diagnostics - Vital Signs Vital Signs Temp Pulse Resp BP Pulse Ox 03/10/19 08:10 71 144/73 97 03/10/19 08:00 60 97 03/10/19 07:43 95 03/10/19 07:40 58 118/65 97 03/10/19 07:10 62 124/64 73 03/10/19 07:07 56 97 03/10/19 06:53 26 03/10/19 06:21 97.1 F 75 24 155/91 100 - Laboratory Lab Results: Lab Results 03/10/19 03/10/19 03/10/19 Range/Units 06:53 06:53 06:53 WBC 8.6 (3.5-10.8) 10^3/uL RBC 4.08 (3.70-4.87) 10^6 /uL Hgb 14.2 (12.0-16.0) g/dL Hct 39 (35-47) % MCV 96 (80-97) fL MCH 35 H (27-31) pg MCHC 36 (31-36) g/dL RDW 13 (10-15) % Plt Count 204 (150-450) 10^3/uL MPV 9.5 (7.4-10.4) fL Neut % (Auto) 82.9 % Lymph % (Auto) 10.2 % Hoke % (Auto) 6.3 % Eos % (Auto) 0.1 % Baso % (Auto) 0.5 % Absolute Neuts (auto) 7.2 (1.5-7.7) 10^3/ul Absolute Lymphs (auto) 0.9 L (1.0-4.8) 10^3/ul Absolute Monos (auto) 0.5 (0-0.8) 10^3/ul Absolute Eos (auto) 0.0 (0-0.6) 10^3/ul Absolute Basos (auto) 0.0 (0-0.2) 10^3/ul Absolute Nucleated RBC 0.0 10^3/ul Nucleated RBC % 0.1 INR (Anticoag Therapy) 1.01 (0.82-1.09) Sodium 125 L (135-145) mmol/L Potassium 4.6 (3.5-5.0) mmol/L Chloride 95 L (101-111) mmol/L Carbon Dioxide 20 L (22-32) mmol/L Anion Gap 10 (2-11) mmol/L BUN 21 (6-24) mg/dL Creatinine 0.92 (0.51-0.95) mg/dL Est GFR ( Amer) 71.6 (>60) Est GFR (Non-Af Amer) 59.2 (>60) BUN/Creatinine Ratio 22.8 H (8-20) Glucose 120 H (70-100) mg/dL Lactic Acid (0.5-2.0) mmol/L Calcium 10.0 (8.6-10.3) mg/dL Magnesium 1.7 L (1.9-2.7) mg/dL Total Bilirubin 0.80 (0.2-1.0) mg/dL AST 13 (13-39) U/L ALT 14 (7-52) U/L Alkaline Phosphatase 94 (34-104) U/L Troponin I 0.01 (<0.04) ng/mL C-Reactive Protein < 1.00 (<8.01) mg/L Total Protein 7.7 (6.4-8.9) g/dL Albumin 4.6 (3.2-5.2) g/dL Globulin 3.1 (2-4) g/dL Albumin/Globulin Ratio 1.5 (1-3) Amylase 56 (29-103) U/L Lipase 25 (11.0-82.0) U/L 03/10/19 Range/Units 06:53 WBC (3.5-10.8) 10^3/uL RBC (3.70-4.87) 10^6 /uL Hgb (12.0-16.0) g/dL Hct (35-47) % MCV (80-97) fL MCH (27-31) pg MCHC (31-36) g/dL RDW (10-15) % Plt Count (150-450) 10^3/uL MPV (7.4-10.4) fL Neut % (Auto) % Lymph % (Auto) % Hoke % (Auto) % Eos % (Auto) % Baso % (Auto) % Absolute Neuts (auto) (1.5-7.7) 10^3/ul Absolute Lymphs (auto) (1.0-4.8) 10^3/ul Absolute Monos (auto) (0-0.8) 10^3/ul Absolute Eos (auto) (0-0.6) 10^3/ul Absolute Basos (auto) (0-0.2) 10^3/ul Absolute Nucleated RBC 10^3/ul Nucleated RBC % INR (Anticoag Therapy) (0.82-1.09) Sodium (135-145) mmol/L Potassium (3.5-5.0) mmol/L Chloride (101-111) mmol/L Carbon Dioxide (22-32) mmol/L Anion Gap (2-11) mmol/L BUN (6-24) mg/dL Creatinine (0.51-0.95) mg/dL Est GFR ( Amer) (>60) Est GFR (Non-Af Amer) (>60) BUN/Creatinine Ratio (8-20) Glucose (70-100) mg/dL Lactic Acid 1.4 (0.5-2.0) mmol/L Calcium (8.6-10.3) mg/dL Magnesium (1.9-2.7) mg/dL Total Bilirubin (0.2-1.0) mg/dL AST (13-39) U/L ALT (7-52) U/L Alkaline Phosphatase (34-104) U/L Troponin I (<0.04) ng/mL C-Reactive Protein (<8.01) mg/L Total Protein (6.4-8.9) g/dL Albumin (3.2-5.2) g/dL Globulin (2-4) g/dL Albumin/Globulin Ratio (1-3) Amylase (29-103) U/L Lipase (11.0-82.0) U/L Result Diagrams: 03/10/19 06:53 03/10/19 06:53 Lab Statement: Any lab studies that have been ordered have been reviewed, and results considered in the medical decision making process. Abdominal Pain Fem Course/Dx - Course Course Of Treatment: During this course treatment, the patient is evaluated for epigastric discomfort. On physical examination there is no worsening discomfort with palpation of the epigastric region or all 4 quadrants otherwise. EKG shows sinus precardiac with a rate of 57, LVH. She is given famotidine, Zofran, ativan for her anxiety and Maalox. Immediately following these medications, patient states she feels improved and denies any symptoms at this time. Her pain reduced from 8/10 to 0/10. Labs obtained which shows hyponatremia at 125. Patient does not appear to be obtunded, or have confuseion , headache, tremors, gait or movement disturbances. She states she feels otherwise well. This hyponatremia could have been at her baseline as last sodium level was drawn 2 years ago. I discussed with the patient the importance of following up with her PCP in 2 days to discuss sodium levels as well as the change of medication. patient was just changed to omeprazole as she states this has worked for her in the past. She will also take Maalox plus for any breakthrough pain. On reexamination, patient continues to deny any symptoms and states she is okay for discharge at this time. - Diagnoses Differential Diagnosis: Positive: Other - GERD, ulcer, chest pain, abdominal pain, anxiety Provider Diagnoses: Epigastric pain Discharge - Sign-Out/Discharge Documenting (check all that apply): Patient Departure Patient Received Moderate/Deep Sedation with Procedure: No - Discharge Plan Condition: Stable Disposition: HOME Prescriptions: Al Hydrox/Mg Hydrox/Simet LIQ* [Maalox Plus*] 30 ml PO Q4H PRN #1 bottle MDD 180 PRN Reason: Pain - Mild Omeprazole 40 mg PO DAILY #30 capsule. Patient Education Materials: Diet for Stomach Ulcers and Gastritis (ED), Epigastric Pain (ED) Referrals: Yoli Echevarria MD [Primary Care Provider] - Additional Instructions: Please discussed with Dr. Echevarria: Low sodium level - will not stop your Spironolactone at this time, however please make her aware We have switched you to Omeprazole as this has worked for you in the past. Take 30ml Maalox plus for any epigastric pain - up to every 4 hours Do not eat acidic foods (I have given you a list) If any worsening pain occurs, please return immediately to the ED Immediately start the omeprazole today - Billing Disposition and Condition Condition: STABLE Disposition: Home
[2019-03-10 08:52] VITALS: BP 136/64
== END 2019-03-10 08:52 | disposition home or self-care (01) ==
LOC: ED 06:20
DX: R10.13 Epigastric pain (principal); R11.0 Nausea; R00.1 Bradycardia, unspecified; I10 Essential (primary) hypertension; K21.9 Gastro-esophageal reflux disease without esophagitis; Z88.5 Allergy status to narcotic agent; Z88.2 Allergy status to sulfonamides; Z88.8 Allergy status to other drugs, medicaments and biological substances; Z91.011 Allergy to milk products; Z87.891 Personal history of nicotine dependence
CPT/HCPCS: 36415; 80053; 82150; 83605; 83690; 83735; 84484; 85025; 85610; 86140; 93005; 96361; 96374; 96375; 99283; A9270-GY; J2060; J2405

== ENCOUNTER 2021-04-09 16:44 | Inpatient (IN) ==
[2021-04-09 18:10] LABS: ABS Basophils 0.1 10^3/ul (0-0.2); ABS Eosinophils 0.1 10^3/ul (0-0.6); ABS Lymphocytes 2.3 10^3/ul (1.0-4.8); ABS Neutrophils 7.5 10^3/ul (1.5-7.7); Eosinophil % 0.8 %; Hematocrit 40 % (35-47); Lymphocyte % 21.2 %; Mean Corpuscular HGB Conc 35 g/dL (31-36); Mean Corpuscular Hemoglobin 35 pg (27-31); Mean Corpuscular Volume 99 fL (80-97); Mean Platelet Volume 8.7 fL (7.4-10.4); Nucleated Red Blood Cells % 0.1; Platelet Count 240 10^3/uL (150-450); Red Blood Count 4.04 10^6 /uL (3.70-4.87); Red Cell Distribution Width 13 % (10-15); White Blood Count 10.9 10^3/uL (3.5-10.8)
[2021-04-09 18:26] LABS: Albumin 4.5 g/dL (3.2-5.2); Albumin/Globulin Ratio 1.4 (1-3); EGFR African American 83.5 (>60); Globulin 3.3 g/dL (2-4); HDL Cholesterol 56.3 mg/dL; Potassium 3.8 mmol/L (3.5-5.0); Total Bilirubin 0.7 mg/dL (0.2-1.0); Total Protein 7.8 g/dL (6.4-8.9)
[2021-04-09] MEDS ORDERED: levETIRAcetam 1000MG IVPREMIX 1,000 MG/100 ML BAG IVPB ONE (18:38)
[2021-04-09 19:27] LABS: INR 1.11 (0.86-1.15)
[2021-04-09] MEDS ORDERED: niCARdipine 0.1MG/ML IVPREMIX 20 MG/200 ML BAG IV SCH (21:00)
[2021-04-09] MEDS: Enalaprilat IV 1.25 mg/ml 1 ml VIAL (1.25 MG) IV SCH (23:24)
[2021-04-09] MEDS: Latanoprost 0.005% 2.5 ml BTL BOTH EYES SCH (23:55)
[2021-04-10] MEDS: Lactated Ringers 1000 ml BAG 1,000 ML IV SCH (00:05)
[2021-04-10] MEDS: Enalaprilat IV 1.25 mg/ml 1 ml VIAL (1.25 MG) IV SCH ×2 (04:09→08:43)
[2021-04-10 05:33] LABS: ABS Basophils 0.1 10^3/ul (0-0.2); ABS Eosinophils 0.1 10^3/ul (0-0.6); ABS Lymphocytes 1.8 10^3/ul (1.0-4.8); ABS Monocytes 0.7 10^3/ul (0-0.8); ABS Neutrophils 4.2 10^3/ul (1.5-7.7); Eosinophil % 1.2 %; Hematocrit 36 % (35-47); Hemoglobin 12.6 g/dL (12.0-16.0); Lymphocyte % 26.6 %; Mean Corpuscular HGB Conc 35 g/dL (31-36); Mean Corpuscular Hemoglobin 34 pg (27-31); Mean Corpuscular Volume 98 fL (80-97); Mean Platelet Volume 9.1 fL (7.4-10.4); Platelet Count 207 10^3/uL (150-450); Red Blood Count 3.66 10^6 /uL (3.70-4.87); Red Cell Distribution Width 12 % (10-15); White Blood Count 6.9 10^3/uL (3.5-10.8)
[2021-04-10 05:53] LABS: Calcium 9.5 mg/dL (8.6-10.3); EGFR African American 95.8 (>60); EGFR Non-African American 79.2 (>60); Potassium 3.7 mmol/L (3.5-5.0)
[2021-04-10 06:30] LABS: TSH Ultra Thyroid Stim Horm 2.04 mcIU/mL (0.34-5.60)
[2021-04-10 06:32] LABS: Free T4 0.89 ng/dL (0.61-1.12)
[2021-04-10] MEDS: levETIRAcetam 500 MG IVPREMIX 500 MG/100 ML BAG IV SCH ×2 (09:02→19:41)
[2021-04-10] MEDS: Latanoprost 0.005% 2.5 ml BTL BOTH EYES SCH (21:30)
[2021-04-11] MEDS: Lactated Ringers 1000 ml BAG 1,000 ML IV SCH (02:58)
[2021-04-11 05:58] LABS: ABS Basophils 0.1 10^3/ul (0-0.2); ABS Eosinophils 0.1 10^3/ul (0-0.6); ABS Lymphocytes 1.7 10^3/ul (1.0-4.8); ABS Monocytes 0.7 10^3/ul (0-0.8); ABS Neutrophils 5.3 10^3/ul (1.5-7.7); Eosinophil % 1.3 %; Hematocrit 38 % (35-47); Hemoglobin 13.4 g/dL (12.0-16.0); Lymphocyte % 21.5 %; Mean Corpuscular HGB Conc 36 g/dL (31-36); Mean Corpuscular Hemoglobin 35 pg (27-31); Mean Corpuscular Volume 99 fL (80-97); Platelet Count 210 10^3/uL (150-450); Red Blood Count 3.81 10^6 /uL (3.70-4.87); Red Cell Distribution Width 12 % (10-15); White Blood Count 7.8 10^3/uL (3.5-10.8)
[2021-04-11 06:14] LABS: Calcium 9.8 mg/dL (8.6-10.3); EGFR African American 88.6 (>60); EGFR Non-African American 73.2 (>60); Potassium 3.8 mmol/L (3.5-5.0)
[2021-04-11] MEDS: levETIRAcetam 500 MG IVPREMIX 500 MG/100 ML BAG IV SCH (08:39)
[2021-04-11] MEDS: Latanoprost 0.005% 2.5 ml BTL BOTH EYES SCH (21:28)
[2021-04-12 04:48] LABS: ABS Basophils 0.1 10^3/ul (0-0.2); ABS Eosinophils 0.1 10^3/ul (0-0.6); ABS Lymphocytes 1.7 10^3/ul (1.0-4.8); ABS Monocytes 0.8 10^3/ul (0-0.8); ABS Neutrophils 4.7 10^3/ul (1.5-7.7); Eosinophil % 1.9 %; Hematocrit 37 % (35-47); Hemoglobin 12.7 g/dL (12.0-16.0); Mean Corpuscular HGB Conc 35 g/dL (31-36); Mean Corpuscular Hemoglobin 34 pg (27-31); Mean Corpuscular Volume 99 fL (80-97); Mean Platelet Volume 9.1 fL (7.4-10.4); Nucleated Red Blood Cells % 0.1; Platelet Count 198 10^3/uL (150-450); Red Blood Count 3.68 10^6 /uL (3.70-4.87); Red Cell Distribution Width 13 % (10-15); White Blood Count 7.4 10^3/uL (3.5-10.8)
[2021-04-12 05:05] LABS: Calcium 9.3 mg/dL (8.6-10.3); EGFR African American 87.3 (>60); EGFR Non-African American 72.1 (>60); Potassium 3.8 mmol/L (3.5-5.0)
[2021-04-12 12:39] VITALS: BP 133/66
== END 2021-04-12 13:00 | disposition home or self-care (01) | DRG 66 ==
LOC: ED 16:44 → ICU 19:37 → MEDTELE 04-11 19:06
PROVIDERS: ADMIT Internal Medicine; ATTEND Internal Medicine